=== PATIENT | female | born 1975 | race Caucasian/White ===

== ENCOUNTER 2020-05-06 14:05 | Outpatient (REF) | payer MEDICAID, SELFPAY ==
[2020-05-06 16:29] LABS: TSH reflex Free T4 24.41 mIU/mL (0.32-4.0)
[2020-05-06 17:10] LABS: Free T4 (Free Thyroxine) 0.58 ng/dL (0.71-1.85)
== END 2020-05-06 14:06 | disposition home or self-care (01) ==
LOC: HO.LAB 14:05
PROVIDERS: PCP Nurse Practitioner Family; Visit Provider Obstetrics & Gynecology
DX: N93.9 Abnormal uterine and vaginal bleeding, unspecified (principal)
CPT/HCPCS: 84439; 84443; 99202

== ENCOUNTER → 2020-05-31 10:01 | Outpatient (BNVA) | payer MEDICAID, SELFPAY | PROVIDERS: Visit Provider Obstetrics & Gynecology | DX: Z76.89 Persons encountering health services in other specified circumstances (principal) ==

== ENCOUNTER → 2020-06-02 11:42 | Outpatient (BNVA) | payer MEDICAID, SELFPAY | PROVIDERS: Visit Provider Obstetrics & Gynecology | DX: N93.9 Abnormal uterine and vaginal bleeding, unspecified (principal) | CPT/HCPCS: 99212 ==

== ENCOUNTER 2020-06-11 07:41 | Day surgery (SDC) | payer MEDICAID, SELFPAY ==
[2020-06-03 20:32] VITALS: BMI 32.1
--- NOTE | 2020-06-09 11:37 | P.CONAN_ITS ---
Documented by User: Tabatha Hernández 06/09/20 11:39 HPI - Anesthesia Eval Consult details Narrative: 44yo F for Hysteroscopy Diagnostic w/Novasure, possible novasure ablation PMFSH Past Medical History Medical History (Updated 06/11/20 @ 09:58 by Anabel King) Autoimmune disorder B12 deficiency Chronic hepatitis C HIV (human immunodeficiency virus infection) Hypothyroidism Iron deficiency anemia Surgical History Surgical History H/O tubal ligation H/O: Social History Social History (Updated 06/11/20 @ 09:59 by Anabel King) Alcohol intake: current Smoking Status: Former smoker Second Hand Smoke Exposure: No Use of substances other than those prescribed or required for medical reasons: No Advance Directives: No Advance Directives Information Provided: No Advance Directives on File: No Recently lost weight without trying: No Sexual orientation: Straight/Heterosexual Gender identity: female Meds Allergies Allergy/AdvReac Type Severity Reaction Status Date / Time No Known Allergies Allergy Verified 06/03/20 20:31 [No Known Allergies*] Home Medications Medication Instructions Recorded Confirmed Type Tivicay 50 mg PO DAILY 05/06/20 06/03/20 History docusate sodium 100 mg PO BID 05/06/20 06/03/20 History levothyroxine 200 mcg PO DAILY 05/06/20 06/03/20 History ferrous sulfate [iron] 325 mg PO DAILY 06/03/20 06/03/20 History Exam Exam Date and Time: June 09, 2020 1137 Height,Weight and Vital Signs: Height 5 ft 1 in Weight 77.111 kg Pertinent Lab Results Pertinent Lab Results: Laboratory Tests 02/22/20 02/22/20 06:01 06:01 WBC 5.4 Hgb 8.2 L Hct 27.2 L Plt Count 363 Sodium 139 Potassium 4.0 Chloride 108 BUN 10 Creatinine 1.00 Assessment and Plan Assessment Anesthesia Assessment: Chart Reviewed Documented by User: Anabel King 06/11/20 10:48 [facility] Past Medical History Medical History (Updated 06/11/20 @ 09:58 by Anabel King) Autoimmune disorder B12 deficiency Chronic hepatitis C HIV (human immunodeficiency virus infection) Hypothyroidism Iron deficiency anemia Family History Family history of problems with anesthesia: No Surgical History Surgical History H/O tubal ligation H/O: History of Problems with Anesthesia: No Social History Social History (Updated 06/11/20 @ 09:59 by Anabel King) Alcohol intake: current Smoking Status: Former smoker Second Hand Smoke Exposure: No Use of substances other than those prescribed or required for medical reasons: No Advance Directives: No Advance Directives Information Provided: No Advance Directives on File: No Recently lost weight without trying: No Sexual orientation: Straight/Heterosexual Gender identity: female Meds Allergies Allergy/AdvReac Type Severity Reaction Status Date / Time No Known Allergies Allergy Verified 06/03/20 20:31 [No Known Allergies*] Home Medications Medication Instructions Recorded Confirmed Type Tivicay 50 mg PO DAILY 05/06/20 06/03/20 History docusate sodium 100 mg PO BID 05/06/20 06/03/20 History levothyroxine 200 mcg PO DAILY 05/06/20 06/03/20 History ferrous sulfate [iron] 325 mg PO DAILY 06/03/20 06/03/20 History Exam Height,Weight and Vital Signs: Vital Signs Temp Pulse Resp BP Pulse Ox 06/11/20 08:58 97.6 F 57 16 102/63 100 Pertinent Lab Results Pertinent Lab Results: Lab Results 06/11/20 06/11/20 06/11/20 Range/Units 08:22 10:04 10:04 Hgb 10.0 L (12.0-16.0) g/dl Hct Cancelled 31.1 L Beta HCG, Quant < 2 mIU/mL Airway Mallampati Class: II TM Dist: >3cm Neck ROM: Full (Some pain with full extension) Loose/Missing/Broken Teeth: Yes (Some missing) Heart: RRR Lungs: CTAB Assessment and Plan Assessment Anesthesia Assessment: Anesthesia Plan Discussed and Chart Reviewed Final Anesthetic Review NPO: Yes ASA Class: III Final Preanesthetic Review: No Changes in Pt Med Stat, Meds/Allgs Chart Reviewed, Consent Obtained/Reviewed and Anes Risks/Benef Reviewed Patient Risk: Intermediate Procedure Risk: Low Assessment/Block/Sedation in SS: Assess/Block/Sedation-SS Anesthetic Plan Anesthetic Plan: GA Disposition: Standard PACU
[2020-06-11] VITALS (7 sets, daily range): BP systolic 101–108; BP diastolic 63–72; PULSE 53–75; RESP 16; TEMP 36.3–36.4; O2SAT 98–100
[2020-06-11] MEDS: Lactated Ringers 1,000 ML 100 ML IVCONT (08:57)
--- NOTE | 2020-06-11 08:58 | MHC.SHP ---
Pre-Procedural Eval Section A The patient is an INPATIENT: No Changes since office visit: No Cold of Flu in the past 2 weeks, No New Medical Problems, No Changes in Medication and No Patient answered all questions The History & Physical has been completed within 30 days and I have reviewed it.: Yes Section B Chief Complaint: abnormal bleeding Allergies: Allergies Allergy/AdvReac Type Severity Reaction Status Date / Time No Known Allergies Allergy Verified 06/03/20 20:31 [No Known Allergies*] Plan I have reviewed the history and physical and performed a pertinent physical examination on my patient. No changes have occurred unless specified.
[2020-06-11 09:06] LABS: HCG Quantitative < 2 mIU/mL
[2020-06-11 10:21] LABS: Hematocrit 31.1 % (37-47)
--- NOTE | 2020-06-11 10:56 | W.PM.OPN ---
Operative Note Operative Note Date of Service: 06/11/20 Narrative: Ms. Jim is a 44 year old with abnormal uterine bleeding. She presents today for hysteroscopy d&c for AUB after EMB was unsuccessful in the office . Surgical Risks: The patient was informed of the risks and benefits of a hysteroscopy with dilation and curettage. Risks included but were not limited to bleeding, infection, injury to the vulva, vagina, or cervix, and uterine perforation with possible need for further surgery. The patient expressed understanding of the risks involved, all questions were answered, and the patient consented to the procedure. The patient was taken to the operating room where a time out was confirmed to confirm correct patient and correct procedure. Adequate general anesthesia was established. The patient was then positioned on the operating table in the dorsal lithotomy position with her legs supported using stirrups. All pressure points were padded and a warm blanket was placed to maintain control of core body temperature. The patient was then prepped and draped in the usual sterile fashion. A bimanual exam was performed and the uterus was found to be approximately 12 cm size, anteverted. No adnexal masses were palpated. A straight catheter was inserted into the bladder and 100mL of urine was obtained. A bivalve speculum was then inserted into the vagina. The anterior lip of the cervix was visualized and grasped using a single tooth tenaculum. The cervix was adequately dilated using Green dilators for the introduction of the hysteroscope. The hysteroscope was introduced under direct visualization using normal saline solution as the distending media. The hysteroscope was advanced to the fundus and the entire uterine cavity was inspected. Polypoid tissue was noted bilaterally distal to the fundus. The myosure was advanced through the hysteroscope and sharp curettage under direct visualization was performed of polypoid appearing tissue at 8 o'clock and 3 o'clock. The myosure within the hysteroscope was then removed and a sharp curetting was performed starting at the 12 o?clock position and rotating a total of 360 degrees in order to cover all surfaces. Endometrial tissue was obtained and was sent to pathology. Following the curetting, good hemostasis was noted. The single-tooth tenaculum was removed from the anterior lip of the cervix. Bleeding was noted at the left tenaculum puncture site which did not resolve with pressure alone and Monsel's solution was paplied. Good hemostasis was then noted. The speculum was then removed from the vagina. At the end of the procedure, all needle, sponge, and instrument counts were noted to be correct x2. The patient was transferred to the recovery room in stable condition. Fluid deficit: 270mL EBL: 10cc
--- NOTE | 2020-06-11 12:21 | HO.POSTANES ---
Post Anesthesia Evaluation Post Anesthesia Evaluation Vital Signs: Vital Signs Temp Pulse Resp BP Pulse Ox 06/11/20 11:43 97.4 F 60 16 103/69 99 06/11/20 11:28 75 16 106/72 98 06/11/20 11:13 54 16 103/69 98 06/11/20 11:08 69 16 108/63 98 06/11/20 11:03 53 16 106/67 100 06/11/20 10:58 97.4 F 56 16 101/67 100 06/11/20 08:58 97.6 F 57 16 102/63 100 Anesthesia: General LMA Mental Status: Awake Pain Control: Satisfactory Nausea/Vomiting: None Hydration: Adequate Anesthesia-Related Issues: No Anes. Related Issues
== END 2020-06-11 12:17 | disposition home or self-care (01) ==
PROVIDERS: Anesthesiology; PCP Nurse Practitioner Family; Visit Provider Obstetrics & Gynecology
PROC: (CPT 58558; principal; 2020-06-11 10:00)
DX: N93.9 Abnormal uterine and vaginal bleeding, unspecified (principal); N85.4 Malposition of uterus; D89.89 Other specified disorders involving the immune mechanism, not elsewhere classified; D50.9 Iron deficiency anemia, unspecified; E03.9 Hypothyroidism, unspecified; Z98.51 Tubal ligation status; Z21 Asymptomatic human immunodeficiency virus [HIV] infection status; Z79.899 Other long term (current) drug therapy; Z86.19 Personal history of other infectious and parasitic diseases
CPT/HCPCS: 58558; 36415; 84702; 85014; 85018; 88305; J1100; J2250; J2405; J3010

== ENCOUNTER 2020-06-13 14:09 | Emergency (ER) | payer MEDICAID, SELFPAY ==
--- NOTE | 2020-06-13 | US_ITS ---
EXAMINATION: ULTRASOUND PELVIS, COMPLETE CLINICAL INFORMATION: COMPARISON: 02/21/2020 TECHNIQUE: Transabdominal and transvaginal imaging of the pelvic viscera was performed utilizing grayscale and color Doppler technique with spectral analysis FINDINGS: Uterus is normal in size and configuration measuring 10.9 x 5.5 x 6.2 cm. The endometrial signature is homogeneous and measures 0.5 cm. Cervix is normal. Left ovary normal in size and appearance measuring 2.8 x 2.2 x 1.7 cm. Right ovary is normal in size and appearance measuring 2.9 x 2.7 x 2.1 cm. There is a heterogeneous vascularized mass within the right adnexa adjacent to the right ovary measuring 5.6 x 4.5 x 4.8 cm. The mass contains a 2.9 cm hyperechoic area within. In this region on the prior examination, there was a 3.3 x 2.4 x 3.0 cm lesion which appeared more homogeneously hypoechoic. No free fluid. US/US transvaginal IMPRESSION: * No evidence of retained products of conception. * Uterus and endometrium are unremarkable. * There is a heterogeneous 5.6 cm mass within the right adnexa which appears separate from the ovary. On the prior examination, there was a 3.3 cm mass within the right adnexa, which at that time appeared more homogeneously hypoechoic in appearance. The mass now contains a hyperechoic region and appears hypervascular. Neoplasm is considered, as well as possible ectopic . Correlate with hCG levels. Recommend MRI pelvis without and with contrast for further evaluation.
[2020-06-13 14:21] VITALS: BP 108/63; PULSE 73; RESP 16; TEMP 36.9; O2SAT 100; BMI 33.2
--- NOTE | 2020-06-13 14:30 | ED.FEMALEGU ---
HPI - Female Genitourinary General Chief complaint: Vaginal Bleeding Stated complaint: heavy vag bleed Time Seen by Provider: 06/13/20 14:29 Source: patient Mode of arrival: ambulatory Limitations: no limitations History of Present Illness HPI Narrative: 44-year-old female with past medical history that is significant for vitamin B12 deficiency, chronic otitis C, HIV on Tivicay, hypothyroidism, IgA, surgical history of tubal ligation and who is day 3 status post hysteroscopy d&c for abnormal uterine bleeding she presents today with complaint of states she has been experiencing heavy bleeding for the past 1 day she is having to go through at least 4 pads of fully saturated vaginal bleeding. Denies any pain or discomfort. No nausea vomiting. No fever. No dysuria. States she was advised if she experiences bleeding to come to the emergency room. Severity: moderate Quality of pain: other (No pain) Vaginal discharge: none Vaginal bleeding: heavy Exacerbating factors: none Sexual activity: No Patient : No Related Data Home Medications Medication Instructions Recorded Confirmed Tivicay 50 mg PO DAILY 05/06/20 06/03/20 docusate sodium 100 mg PO BID 05/06/20 06/03/20 levothyroxine 200 mcg PO DAILY 05/06/20 06/03/20 ferrous sulfate [iron] 325 mg PO DAILY 06/03/20 06/03/20 Previous Rx's Medication Instructions Recorded acetaminophen [Tylenol 8 Hour] 650 mg PO Q8H PRN #60 tab 06/11/20 ibuprofen 800 mg PO Q8H PRN #60 tab 06/11/20 oxycodone [Roxicodone] 5 mg PO Q6H PRN #5 tab 06/11/20 Allergies Allergy/AdvReac Type Severity Reaction Status Date / Time No Known Allergies Allergy Verified 06/03/20 20:31 [No Known Allergies*] Review of Systems Review of Systems: Constitutional: No Weight loss, No Fever, No Chills, No Night Sweats, No Fatigue, No Malaise ENT/Mouth: No Hearing loss, No Ear Pain, No Nasal Congestion, No Sinus Pain, No Hoarseness, No sore throat, No Rhinorrhea, No Swallowing Difficulty Eyes: No Eye Pain, No Swelling, No Redness, No Foreign Body, No Discharge, No Vision Changes Cardiovascular: No Chest Pain, No SOB, No Dyspnea on Exertion, No Orthopnea, No Edema, No Palpitations Respiratory: No Cough, No Sputum, No Wheezing, No Smoke Exposure, No Dyspnea Gastrointestinal: No Nausea, No Vomiting, No Diarrhea, No Constipation, No abdominal Pain, No Hematochezia, No Melena Genitourinary: No Dysuria, No Urinary Frequency, No Hematuria, No Urinary Incontinence, No Urgency, No Flank Pain, No Urinary Flow Changes, No Hesitancy Musculoskeletal: No joint pain, No Myalgias, No Joint Swelling Skin: No Skin Lesions, No rash Neuro: No Weakness, No Numbness, No Paresthesias, No Loss of Consciousness, No Dizziness, No Headache Psych: No Social Issues Heme/Lymph: No Bruising, No Bleeding,No Lymphadenopathy Endocrine: No Polyuria, No Polydipsia, No Temperature Intolerance [facility] Past Medical History Medical History (Updated 06/13/20 @ 20:35 by Levar Jean NP) Autoimmune disorder B12 deficiency Chronic hepatitis C HIV (human immunodeficiency virus infection) Hypothyroidism Iron deficiency anemia Surgical History H/O tubal ligation H/O: Social History Social History (Updated 06/11/20 @ 09:59 by Anabel King) Alcohol intake: current Alcohol intake frequency: does not drink Smoking Status: Never smoker Second Hand Smoke Exposure: No Use of substances other than those prescribed or required for medical reasons: No Advance Directives: No Advance Directives Information Provided: Yes Sexual orientation: Straight/Heterosexual Gender identity: female Physical Exam Vital Signs: Vital Signs: Last Vital Signs Temp 98.5 F 06/13/20 14:21 Pulse 57 06/13/20 19:15 Resp 16 06/13/20 19:15 BP 100/62 06/13/20 19:15 Pulse Ox 99 06/13/20 19:15 Body Mass Index 33.2 Reviewed Const: General: cooperative and healthy appearing; No acute distress or intoxicated appearing Nutritional Appearance: average body habitus Orientation/consciousness: patient oriented x3 HENMT: Head: Yes normal to inspection Ears: hearing grossly normal bilaterally Eyes: General: appearance normal, both eyes and all related structures Visual Chang: normal visual chang by confrontation Neck: Neck: Yes normal visual inspection and No tender Thyroid: Thyroid normal Chest: Chest palpation & inspection: normal inspection of the chest Resp: Effort & Inspection: normal respiratory effort Cardio: Jugular venous distension: no JVD Rhythm: regular rhythm Heart sounds: S1 normal heart sound present and S2 normal heart sound present GI: Inspection: Yes normal to inspection Palpation (GI): Soft to palpation Percussion: Yes normal to percussion Auscultation: normal bowel sounds : Other: Slight gentle suction after exam vaginal vault cleared Q-tip used to gently palpate against the posterior cervix. Three large Q-tips very minimally/serrated in blood afterwards no further bleeding. General: Yes no CVA tenderness External Female Exam: normal external appearance Speculum Exam - Vagina: normal palpation, vaginal bleeding (Slight bleeding in the vaginal vault) and nontender Speculum Exam - Cervix: normal appearance of the cervix, normal palpation and normal vervical discharge Bimanual exam- vagina & uterus: normal palpation and normal palpation OB/external & speculum: vaginal bleeding (Slight bleeding in the vaginal vault) Back/Spine/Pelvis: Back: no CVA tenderness Skin: General skin exam: no rashes or lesions noted Neuro: General: patient oriented x3 Extrem: General: Yes normal to inspection Course Course Course Narrative: No further bleeding after pelvic exam. In review 44-year-old female with above history who is day 3 status post hysteroscopy d&c for AUB after EMB presenting with vaginal bleeding without pain or discomfort. No evidence of PID, infectious process. Hemodynamically stable. Vitals are stable. Ultrasound findings with some abnormalities as noted case discussed with Dr. Long recommendation for follow-up in office with Dr. De Souza they call tomorrow to the office. Consultations Consultation #1: Case discussed with Dr. Long [facility] - Female Genitourinary Medical Records Attestation: I reviewed the patient's medical records. Lab Data Attestation: I reviewed the patient's lab results. Result diagrams: 06/13/20 15:19 06/13/20 15:19 Labs: Lab Results 06/13/20 06/13/20 06/13/20 Range/Units 15:19 15:19 15:19 WBC 4.8 (4.8-10.8) X10*3/uL RBC 3.74 L (4.20-5.50) X10*6/uL Hgb 9.7 L (12.0-16.0) g/dl Hct 31.1 L (37-47) % MCV 83.2 (80-98) fL MCH 25.9 L (27.0-33.0) pg MCHC 31.2 (31.0-35.0) g/dl RDW 14.6 (11.0-16.0) % Plt Count 304 (160-400) X10*3/uL MPV 10.0 (9.4-12.3) fL Immature Gran % (Auto) 0.2 (0.0-0.4) % Neut % (Auto) 57.5 (45-73) % Lymph % (Auto) 32.4 (20-40) % Casey % (Auto) 8.1 (2-11) % Eos % (Auto) 1.4 (0-4) % Baso % (Auto) 0.4 (0-2) % Lymph # (Auto) 1.6 (1.2-4.9) X10*3/uL Casey # (Auto) 0.4 (0.1-1.2) X10*3/uL Eos # (Auto) 0.1 (0.0-0.4) X10*3/uL Baso # (Auto) 0.0 (0.0-0.2) X10*3/uL Abs Immat Gran (auto) 0.01 (0.00-0.03) X10*3/uL Absolute Neuts (auto) 2.8 (2.0-8.3) X10*3/uL Absolute Nucleated RBC 0.000 (0.0-0.012) X10*3/uL Nucleated RBC % (auto) 0.0 (0.0-0.2) /100WBC PT 14.1 H (10.8-13.0) SEC INR 1.2 H (0.9-1.1) APTT 33.5 (24.1-38.0) SEC Sodium 138 (135-145) mmol/L Potassium 3.9 (3.3-5.1) mmol/l Chloride 108 (96-108) mmol/L Carbon Dioxide 25 (22-29) mmol/L Anion Gap 10 L (12-20) BUN 10 (9-16) mg/dL Creatinine 0.78 (0.5-1.4) mg/dL Estim Creat Clear Calc 86.2 Estimated GFR > 60 Random Glucose 84 (60-115) mg/dL Calcium 8.4 (8.4-10.2) mg/dL Total Bilirubin 0.6 (0.0-1.0) mg/dL AST 15 (5-31) U/L ALT 9 (0-31) U/L Alkaline Phosphatase 45 (39-117) U/L Total Protein 7.0 (6.5-8.0) g/dL Albumin 4.0 (3.5-5.0) g/dL Beta HCG, Quant < 2 mIU/mL Urine Color Urine Appearance Urine pH (5.0-8.0) Ur Specific [place] (1.005-1.025) Urine Protein (NEG-TRACE) MG/DL Urine Glucose (UA) (NEG) MG/DL Urine Ketones (NEG) MG/DL Urine Blood (NEG) Urine Nitrite (NEG) Ur Leukocyte Esterase (NEG) Urine RBC (0) /HPF Urine WBC (0-4) /HPF Ur Squamous Epith Cells /LPF Urine Bacteria /LPF Urine Test (NEGATIVE) Blood Type Antibody Screen 06/13/20 06/13/20 Range/Units 15:19 18:31 WBC (4.8-10.8) X10*3/uL RBC (4.20-5.50) X10*6/uL Hgb (12.0-16.0) g/dl Hct (37-47) % MCV (80-98) fL MCH (27.0-33.0) pg MCHC (31.0-35.0) g/dl RDW (11.0-16.0) % Plt Count (160-400) X10*3/uL MPV (9.4-12.3) fL Immature Gran % (Auto) (0.0-0.4) % Neut % (Auto) (45-73) % Lymph % (Auto) (20-40) % Casey % (Auto) (2-11) % Eos % (Auto) (0-4) % Baso % (Auto) (0-2) % Lymph # (Auto) (1.2-4.9) X10*3/uL Casey # (Auto) (0.1-1.2) X10*3/uL Eos # (Auto) (0.0-0.4) X10*3/uL Baso # (Auto) (0.0-0.2) X10*3/uL Abs Immat Gran (auto) (0.00-0.03) X10*3/uL Absolute Neuts (auto) (2.0-8.3) X10*3/uL Absolute Nucleated RBC (0.0-0.012) X10*3/uL Nucleated RBC % (auto) (0.0-0.2) /100WBC PT (10.8-13.0) SEC INR (0.9-1.1) APTT (24.1-38.0) SEC Sodium (135-145) mmol/L Potassium (3.3-5.1) mmol/l Chloride (96-108) mmol/L Carbon Dioxide (22-29) mmol/L Anion Gap (12-20) BUN (9-16) mg/dL Creatinine (0.5-1.4) mg/dL Estim Creat Clear Calc Estimated GFR Random Glucose (60-115) mg/dL Calcium (8.4-10.2) mg/dL Total Bilirubin (0.0-1.0) mg/dL AST (5-31) U/L ALT (0-31) U/L Alkaline Phosphatase (39-117) U/L Total Protein (6.5-8.0) g/dL Albumin (3.5-5.0) g/dL Beta HCG, Quant mIU/mL Urine Color RED Urine Appearance TURBID Urine pH 7.0 (5.0-8.0) Ur Specific [place] 1.025 (1.005-1.025) Urine Protein 2+ H (NEG-TRACE) MG/DL Urine Glucose (UA) NEG (NEG) MG/DL Urine Ketones NEG (NEG) MG/DL Urine Blood 3+ H (NEG) Urine Nitrite NEG (NEG) Ur Leukocyte Esterase 1+ H (NEG) Urine RBC TNTC H (0) /HPF Urine WBC 0 (0-4) /HPF Ur Squamous Epith Cells NONE /LPF Urine Bacteria 1+ /LPF Urine Test NEGATIVE (NEGATIVE) Blood Type O Positive Antibody Screen NEGATIVE Imaging Data Pelvic/transvaginal ultrasound: Radiologist's impression: [address] [address] Ultrasound Report Signed Patient: HilHeidy colonR#: [id number] : 1975Acct:[id number] Age/Sex: 44 / FADM Date: 06/13/20 Loc: HO.ED Attending Dr: Ordering Physician: Levar Jean NP Date of Service: 06/13/20 Procedure(s): US pelvic complete Accession Number(s): [id number] cc: Levar Jean [employer]~ EXAMINATION: ULTRASOUND PELVIS, COMPLETE CLINICAL INFORMATION: COMPARISON: 02/21/2020 TECHNIQUE: Transabdominal and transvaginal imaging of the pelvic viscera was performed utilizing grayscale and color Doppler technique with spectral analysis FINDINGS: Uterus is normal in size and configuration measuring 10.9 x 5.5 x 6.2 cm. The endometrial signature is homogeneous and measures 0.5 cm. Cervix is normal. Left ovary normal in size and appearance measuring 2.8 x 2.2 x 1.7 cm. Right ovary is normal in size and appearance measuring 2.9 x 2.7 x 2.1 cm. There is a heterogeneous vascularized mass within the right adnexa adjacent to the right ovary measuring 5.6 x 4.5 x 4.8 cm. The mass contains a 2.9 cm hyperechoic area within. In this region on the prior examination, there was a 3.3 x 2.4 x 3.0 cm lesion which appeared more homogeneously hypoechoic. No free fluid. US/US pelvic complete IMPRESSION: * No evidence of retained products of conception. * Uterus and endometrium are unremarkable. * There is a heterogeneous 5.6 cm mass within the right adnexa which appears separate from the ovary. On the prior examination, there was a 3.3 cm mass within the right adnexa, which at that time appeared more homogeneously hypoechoic in appearance. The mass now contains a hyperechoic region and appears hypervascular. Neoplasm is considered, as well as possible ectopic . Correlate with hCG levels. Recommend MRI pelvis without and with contrast for further evaluation. Dictated By:MARTIN MENDOZA MD Signed By:<Electronically signed by MARTIN MENDOZA MD in OV>06/13/20 0036 DD/ 1430 TD/TT: Supreme Court Judge: BAKARI Discharge Plan Discharge Clinical Impression: Abnormal uterine bleeding, Abnormal pelvic ultrasound Patient Disposition: Home, Self-Care Instructions: Dysfunctional Uterine Bleeding (ED) Additional Instructions: Take iron supplement as prescribed Well-balanced diet Push fluids Take her iron supplement as prescribed Follow-up with Dr. De Souza as discussed Return if any concerns or worsening symptoms Thank you Prescriptions: No Action ferrous sulfate [iron] 325 mg (65 mg iron) Tablet 325 mg PO DAILY RF: 0 ibuprofen 800 mg tablet 800 mg PO Q8H PRN (Reason: pain) Qty: 60 RF: 0 acetaminophen [Tylenol 8 Hour] 650 mg tablet extended release 650 mg PO Q8H PRN (Reason: pain) Qty: 60 RF: 0 oxycodone [Roxicodone] 5 mg tablet 5 mg PO Q6H PRN (Reason: pain) Qty: 5 RF: 0 docusate sodium 100 mg Capsule 100 mg PO BID RF: 0 levothyroxine 200 mcg Tablet 200 mcg PO DAILY RF: 0 Tivicay 50 mg Tablet 50 mg PO DAILY RF: 0 Referrals: Linda De Souza MD [Physician] - 2 days
[2020-06-13 15:05] VITALS: BP 100/64; PULSE 50; RESP 14; O2SAT 98
[2020-06-13 15:26] LABS: Basophils Percent Auto 0.4 % (0-2); Eosinophils Absolute Auto 0.1 X10*3/uL (0.0-0.4); Eosinophils Percent Auto 1.4 % (0-4); Hematocrit 31.1 % (37-47); Hemoglobin 9.7 g/dl (12.0-16.0); Imm Gran Abs Auto 0.01 X10*3/uL (0.00-0.03); Imm Gran Pct Auto 0.2 % (0.0-0.4); Lymphocytes Absolute Auto 1.6 X10*3/uL (1.2-4.9); Lymphocytes Percent Auto 32.4 % (20-40); MANUAL DIFF FLAG NO; Mean Corpuscular HGB Conc 31.2 g/dl (31.0-35.0); Mean Corpuscular Hemoglobin 25.9 pg (27.0-33.0); Mean Corpuscular Volume 83.2 fL (80-98); Monocytes Absolute Auto 0.4 X10*3/uL (0.1-1.2); Monocytes Percent Auto 8.1 % (2-11); Neutrophils Absolute Auto 2.8 X10*3/uL (2.0-8.3); Neutrophils Percent Auto 57.5 % (45-73); Platelet Count 304 X10*3/uL (160-400); Red Blood Count 3.74 X10*6/uL (4.20-5.50); Red Cell Distribution Width 14.6 % (11.0-16.0); White Blood Count 4.8 X10*3/uL (4.8-10.8)
[2020-06-13 15:33] LABS: INTERNATIONAL NORM RATIO 1.2 (0.9-1.1); Prothrombin Time 14.1 SEC (10.8-13.0)
[2020-06-13 15:35] LABS: Partial Thromboplastin Time 33.5 SEC (24.1-38.0)
[2020-06-13 16:05] LABS: Alanine Aminotransferase 9 U/L (0-31); Alkaline Phosphatase 45 U/L (39-117); Bilirubin Total 0.6 mg/dL (0.0-1.0); Blood Urea Nitrogen 10 mg/dL (9-16); Calcium 8.4 mg/dL (8.4-10.2); Carbon Dioxide 25 mmol/L (22-29); Creatinine Clr Calc Pharmacy 86.2; Estimated Glomerular Filt Rate > 60; Glucose Random 84 mg/dL (60-115)
[2020-06-13 16:20] LABS: Anion Gap 10 (12-20); Aspartate Amino Transferase 15 U/L (5-31); Chloride 108 mmol/L (96-108); Potassium 3.9 mmol/l (3.3-5.1); Sodium 138 mmol/L (135-145)
[2020-06-13 17:26] VITALS: BP 109/66; PULSE 57; RESP 16; O2SAT 99
[2020-06-13 18:46] LABS: UPreg QC Valid YES; Urine Pregnancy NEGATIVE (NEGATIVE)
--- NOTE | 2020-06-13 18:47 | PC.NURSE ---
Report taken from Lissette, this RN resuming care.
[2020-06-13 18:49] LABS: Glucose Urine UA NEG (NEG); Leukocyte Esterase Urine 1+ (NEG); Nitrite Urine NEG (NEG); Specific Gravity - Urine 1.025 (1.005-1.025); Urine Blood 3+ (NEG); Urine Ketones NEG (NEG); Urine Protein 2+ MG/DL (NEG-TRACE)
[2020-06-13 18:54] LABS: HCG Quantitative < 2 mIU/mL
[2020-06-13 18:54] LABS: Appearance Urine TURBID; Color Urine RED
[2020-06-13 18:55] LABS: Bacteria Urine 1+ /LPF; RBC Urine TNTC /HPF (0); WBC Urine 0 /HPF (0-4)
[2020-06-13 19:15] VITALS: BP 100/62; PULSE 57; RESP 16; O2SAT 99
--- NOTE | 2020-06-13 19:18 | PC.NURSE ---
Pt resting in bed, primarily Iraqi speaking only, denies pain at this time. VSS, pt awaiting lab results and plan of care. Continue to monitor.
--- NOTE | 2020-06-13 20:08 | PC.NURSE ---
[employer]AC[employer] MEMBER at bedside explaining plan to DC home.
--- NOTE | 2020-06-13 20:37 | PC.NURSE ---
Spray Dry Operator called for DC instructions.
== END 2020-06-13 20:55 | disposition home or self-care (01) ==
PROVIDERS: Nurse Practitioner Primary Care; Emergency Provider Emergency Medicine; PCP Nurse Practitioner Family
DX: N93.9 Abnormal uterine and vaginal bleeding, unspecified (principal); R93.41 Abnormal radiologic findings on diagnostic imaging of renal pelvis, ureter, or bladder; Z21 Asymptomatic human immunodeficiency virus [HIV] infection status
CPT/HCPCS: 36415; 76830; 76856; 80053; 81001; 81025; 84702; 85025; 85610; 85730; 86850; 86900; 86901; 87086; 99284

== ENCOUNTER → 2020-06-17 08:58 | Outpatient (BNVA) | payer MEDICAID, SELFPAY | PROVIDERS: Visit Provider Obstetrics & Gynecology | DX: N83.201 Unspecified ovarian cyst, right side (principal); R30.0 Dysuria | CPT/HCPCS: 99212 ==

== ENCOUNTER 2020-06-17 09:42 | Inpatient (IN) | payer MEDICAID, SELFPAY ==
--- NOTE | 2020-06-17 | IR_ITS ---
EXAMINATION: ULTRASOUND PRIOR TO NEPHROSTOMY CLINICAL INFORMATION: Right pyelonephritis unlikely hydronephrosis on CT abdomen and pelvis. COMPARISON: CT abdomen and pelvis 06/17/2020. TECHNIQUE: Relatively ultrasound imaging was obtained through the kidneys in the angiography prior to nephrostomy. FINDINGS: On limited ultrasound imaging to the posterior abdomen there is an enlarged right kidney with mild fullness of right kidney pelvis but no dilated calyces seen there is perinephric haziness similar to CT findings more suggestive of inflammatory or infectious etiology. The nephrostomy was canceled find out. On subsequent ultrasound images of there is a dilated calyceal system a nephrostomy will be performed. Results were discussed with Dr. Wiley. IR/IR us guide needle place IMPRESSION: Enlarged right kidney with no significant calyceal dilation. There is mild fullness of the right kidney pelvis and the right ureter as seen on the preceding CT abdomen and pelvis exam. Right nephrostomy was canceled for now. We will revisit patient and nephrostomy after a repeat ultrasound in next 24 to 48 hours or
[2020-06-17 09:51] VITALS: BP 98/55; PULSE 104; RESP 18; TEMP 37.7; O2SAT 99; BMI 33.2
[2020-06-17] MEDS: 0.9 % Sodium Chloride 1,000 ML 999 ML IV ×2 (10:16→11:55)
[2020-06-17 10:23] LABS: Basophils Percent Auto 0.1 % (0-2); Hematocrit 30.2 % (37-47); Hemoglobin 9.9 g/dl (12.0-16.0); Imm Gran Abs Auto 0.05 X10*3/uL (0.00-0.03); Imm Gran Pct Auto 0.4 % (0.0-0.4); Lymphocytes Absolute Auto 0.4 X10*3/uL (1.2-4.9); Lymphocytes Percent Auto 3.9 % (20-40); MANUAL DIFF FLAG SCAN; Mean Corpuscular HGB Conc 32.8 g/dl (31.0-35.0); Mean Corpuscular Hemoglobin 26.4 pg (27.0-33.0); Mean Corpuscular Volume 80.5 fL (80-98); Mean Platelet Volume 9.8 fL (9.4-12.3); Monocytes Absolute Auto 0.9 X10*3/uL (0.1-1.2); Monocytes Percent Auto 7.6 % (2-11); Neutrophils Absolute Auto 9.9 X10*3/uL (2.0-8.3); Platelet Count 247 X10*3/uL (160-400); Red Blood Count 3.75 X10*6/uL (4.20-5.50); Red Cell Distribution Width 15.2 % (11.0-16.0); SCAN SMEAR FLAG 1; White Blood Count 11.2 X10*3/uL (4.8-10.8)
--- NOTE | 2020-06-17 10:24 | PC.NURSE ---
Patient arrives reporting severe flank pain, primarily on right side. Reports hematuria, frequency, and urgency since recent surgery five days ago. Patient appears uncomfortable, blood pressure soft, slightly tachycardic. Tyler PA to bedside to evaluate. IV established and labs drawn. Hung NS 1L at this time. Patient aware of need for urine sample. Will continue to monitor.
--- NOTE | 2020-06-17 10:27 | ED_ITS ---
HPI - General Adult General Chief complaint: Vaginal Bleeding Stated complaint: blood in urine Time Seen by Provider: 06/17/20 10:45 Source: patient Mode of arrival: wheelchair Limitations: no limitations History of Present Illness HPI narrative: Patient presents to ED for right flank pain, dysuria, hematuria, and feeling fevers for the past 3 days. Patient status post surgery for hysterectomy/vaginal bleeding for heavy menstruation. Patient states she only sees blood when she urinates. Patient denies any vaginal bleeding Related Data Home Medications Medication Instructions Recorded Confirmed Tivicay 50 mg PO DAILY 05/06/20 06/17/20 docusate sodium 100 mg PO BID 05/06/20 06/17/20 levothyroxine 200 mcg PO DAILY 05/06/20 06/17/20 ferrous sulfate [iron] 325 mg PO DAILY 06/03/20 06/17/20 Previous Rx's Medication Instructions Recorded acetaminophen [Tylenol 8 Hour] 650 mg PO Q8H PRN #60 tab 06/11/20 ibuprofen 800 mg PO Q8H PRN #60 tab 06/11/20 oxycodone [Roxicodone] 5 mg PO Q6H PRN #5 tab 06/11/20 Allergies Allergy/AdvReac Type Severity Reaction Status Date / Time No Known Allergies Allergy Verified 06/17/20 09:05 [No Known Allergies*] Review of Systems Review of Systems: Yes all other systems are reviewed and are negative Constitutional: Constitutional: Reports as per HPI and Reports no additional constitutional complaints Eyes: Eyes: Reports as per HPI and Reports no additional eye complaints ENT: Reports system reviewed and no additional complaints, except as documented and Reports as per HPI Cardiovascular: Cardiovascular: Reports as per HPI and Reports no additional cardiovascular complaints Respiratory: Respiratory: Reports as per HPI and Reports no additional respiratory complaints Gastrointestinal: Gastrointestinal: Reports as per HPI, Reports no additional gastrointestinal complaints and Reports abdominal pain Genitourinary: Genitourinary: Reports no additional female genitourinary complaints, Reports as per HPI, Reports hematuria and Reports flank pain Comments: Positive for dysuria Musculoskeletal: Musculoskeletal: Reports no additional musculoskeletal complaints and Reports as per HPI Neurologic: Reports system reviewed and no additional complaints, except as documented and Reports as per HPI Psychiatric: Psychiatric: Reports no additional psychiatric complaints and Reports as per HPI PMFSH Past Medical History Medical History Autoimmune disorder B12 deficiency Chronic hepatitis C HIV (human immunodeficiency virus infection) Hypothyroidism Iron deficiency anemia Surgical History H/O tubal ligation H/O: Social History Social History Alcohol intake: never Smoking Status: Never smoker Second Hand Smoke Exposure: No Use of substances other than those prescribed or required for medical reasons: No Advance Directives: No Advance Directives Information Provided: Yes Sexual orientation: Straight/Heterosexual Gender identity: female Physical Exam Vital Signs: Vital Signs: Last Vital Signs Temp 100 F 06/17/20 15:14 Pulse 104 H 06/17/20 15:14 Resp 18 06/17/20 15:14 BP 105/63 06/17/20 15:14 Pulse Ox 99 06/17/20 15:14 Body Mass Index 33.2 Const: General: cooperative, healthy appearing, comfortable, no acute distress, well developed, alert and awake Orientation/consciousness: patient oriented x3 HENMT: Head: Yes normal to inspection and Yes No palpable skull fracture present Eyes: General: appearance normal, both eyes and all related structures Neck: Neck: Yes normal visual inspection, Yes full ROM, Yes no lymphadenopathy, Yes no meningeal signs, Yes trachea midline, Yes supple and No tender Chest: Chest palpation & inspection: normal inspection of the chest and normal palpation of entire chest wall Resp: Effort & Inspection: normal respiratory effort and able to speak in complete sentences Auscultation: clear to auscultation bilaterally Cardio: Jugular venous distension: no JVD Heart sounds: S1 normal heart sound present and S2 normal heart sound present GI: Inspection: Yes normal to inspection and No abdominal wall ecchymosis Palpation (GI): Soft to palpation, not firm, Tenderness to palpation present (GI) in the RLQ, no guarding and not rigid : General: Yes CVA tenderness (Right flank) Back/Spine/Pelvis: Back: CVA tenderness (Right flank) Skin: General skin exam: no rashes or lesions noted Neuro: General: patient oriented x3, gait normal, no meningeal signs and CN's II-XI intact bilaterally Cranial nerves: Yes CN's II-XII intact bilaterally Extrem: General: Yes normal to inspection and Yes full ROM Psych: Appearance: grossly normal, well kempt and not disheveled Course Course Course Narrative: Patient will have basic labs including lactate, blood culture, and septic fluids. Most likely patient will need imaging. This patient kidney stone. Reevaluation(s) Reevaluation #1: Urine shows UTI. Clinical exam indicate possible pyelonephritis. Ceftriaxone ordered. Lactic negative. Will send patient for CT scan to see for possible kidney stones. Time: 11:37 Reevaluation #2: Spoke with hospitalist Dr. Raymond who recommend calling analytics intern on-call to make them aware of case and the possibility that the pelvic mass is causing the hydronephrosis and hydro ureter. Time: 12:52 Reevaluation #3: Spoke with Dr. Mercedes CLARKE who recommend to discuss case with Urology on-call to see if ureter stent will be placed. Spoke with Dr. Davis of urology who states patient should have IR nephrectomy tube yadira cement, which is not a Urology procedure. SPoke with Dr. Miller of who state he will do the procedure today. Time: 18:00 Additional Reevaluation(s): Patient admitted to the hospital for pyelonephritis. Medical Decision Making MDM Narrative Medical decision making narrative: Pyelonephritis Lab Data Result diagrams: 06/17/20 10:13 06/17/20 10:14 Labs: Lab Results 06/17/20 06/17/20 06/17/20 Range/Units 10:13 10:13 10:14 WBC 11.2 H (4.8-10.8) X10*3/uL RBC 3.75 L (4.20-5.50) X10*6/uL Hgb 9.9 L (12.0-16.0) g/dl Hct 30.2 L (37-47) % MCV 80.5 (80-98) fL MCH 26.4 L (27.0-33.0) pg MCHC 32.8 (31.0-35.0) g/dl RDW 15.2 (11.0-16.0) % Plt Count 247 (160-400) X10*3/uL MPV 9.8 (9.4-12.3) fL Immature Gran % (Auto) 0.4 (0.0-0.4) % Neut % (Auto) 88.0 H (45-73) % Lymph % (Auto) 3.9 L (20-40) % [place] % (Auto) 7.6 (2-11) % Eos % (Auto) 0.0 (0-4) % Baso % (Auto) 0.1 (0-2) % Lymph # (Auto) 0.4 L (1.2-4.9) X10*3/uL [place] # (Auto) 0.9 (0.1-1.2) X10*3/uL Eos # (Auto) 0.0 (0.0-0.4) X10*3/uL Baso # (Auto) 0.0 (0.0-0.2) X10*3/uL Abs Immat Gran (auto) 0.05 H (0.00-0.03) X10*3/uL Absolute Neuts (auto) 9.9 H (2.0-8.3) X10*3/uL Absolute Nucleated RBC 0.000 (0.0-0.012) X10*3/uL Nucleated RBC % (auto) 0.0 (0.0-0.2) /100WBC Smear Tech's Comments VERIFIED PT 14.7 H (10.8-13.0) SEC INR 1.2 H (0.9-1.1) APTT 28.5 (24.1-38.0) SEC Sodium (135-145) mmol/L Potassium (3.3-5.1) mmol/l Chloride (96-108) mmol/L Carbon Dioxide (22-29) mmol/L Anion Gap (12-20) BUN (9-16) mg/dL Creatinine (0.5-1.4) mg/dL Estim Creat Clear Calc Estimated GFR Random Glucose (60-115) mg/dL Lactic Acid 1.1 (0.5-2.0) mmol/L Calcium (8.4-10.2) mg/dL Total Bilirubin (0.0-1.0) mg/dL AST (5-31) U/L ALT (0-31) U/L Alkaline Phosphatase (39-117) U/L Total Protein (6.5-8.0) g/dL Albumin (3.5-5.0) g/dL Beta HCG, Quant mIU/mL Urine Color Urine Appearance Urine pH (5.0-8.0) Ur Specific [place] (1.005-1.025) Urine Protein (NEG-TRACE) MG/DL Urine Glucose (UA) (NEG) MG/DL Urine Ketones (NEG) MG/DL Urine Blood (NEG) Urine Nitrite (NEG) Ur Leukocyte Esterase (NEG) Urine RBC (0) /HPF Urine WBC (0-4) /HPF Ur Squamous Epith Cells /LPF Urine Bacteria /LPF Urine Test (NEGATIVE) Coronavirus (PCR) (Negative) Influenza Type A (PCR) (Negative) Influenza Type B (PCR) (Negative) RSV RNA Qual (PCR) (Negative) 06/17/20 06/17/20 06/17/20 Range/Units 10:14 10:14 10:51 WBC (4.8-10.8) X10*3/uL RBC (4.20-5.50) X10*6/uL Hgb (12.0-16.0) g/dl Hct (37-47) % MCV (80-98) fL MCH (27.0-33.0) pg MCHC (31.0-35.0) g/dl RDW (11.0-16.0) % Plt Count (160-400) X10*3/uL MPV (9.4-12.3) fL Immature Gran % (Auto) (0.0-0.4) % Neut % (Auto) (45-73) % Lymph % (Auto) (20-40) % [place] % (Auto) (2-11) % Eos % (Auto) (0-4) % Baso % (Auto) (0-2) % Lymph # (Auto) (1.2-4.9) X10*3/uL [place] # (Auto) (0.1-1.2) X10*3/uL Eos # (Auto) (0.0-0.4) X10*3/uL Baso # (Auto) (0.0-0.2) X10*3/uL Abs Immat Gran (auto) (0.00-0.03) X10*3/uL Absolute Neuts (auto) (2.0-8.3) X10*3/uL Absolute Nucleated RBC (0.0-0.012) X10*3/uL Nucleated RBC % (auto) (0.0-0.2) /100WBC Smear Tech's Comments PT (10.8-13.0) SEC INR (0.9-1.1) APTT (24.1-38.0) SEC Sodium 135 (135-145) mmol/L Potassium 3.5 (3.3-5.1) mmol/l Chloride 105 (96-108) mmol/L Carbon Dioxide 21 L (22-29) mmol/L Anion Gap 13 (12-20) BUN 14 (9-16) mg/dL Creatinine 1.01 (0.5-1.4) mg/dL Estim Creat Clear Calc 66.6 Estimated GFR > 60 Random Glucose 123 H D (60-115) mg/dL Lactic Acid (0.5-2.0) mmol/L Calcium 8.4 (8.4-10.2) mg/dL Total Bilirubin 1.1 H (0.0-1.0) mg/dL AST 18 (5-31) U/L ALT 18 (0-31) U/L Alkaline Phosphatase 61 D (39-117) U/L Total Protein 7.0 (6.5-8.0) g/dL Albumin 3.8 (3.5-5.0) g/dL Beta HCG, Quant < 2 mIU/mL Urine Color BROWN Urine Appearance CLOUDY Urine pH 5.5 (5.0-8.0) Ur Specific [place] >= 1.030 H (1.005-1.025) Urine Protein 2+ H (NEG-TRACE) MG/DL Urine Glucose (UA) NEG (NEG) MG/DL Urine Ketones 5 (NEG) MG/DL Urine Blood 3+ H (NEG) Urine Nitrite POS H (NEG) Ur Leukocyte Esterase 1+ H (NEG) Urine RBC TNTC H (0) /HPF Urine WBC TNTC H (0-4) /HPF Ur Squamous Epith Cells 2+ /LPF Urine Bacteria 4+ /LPF Urine Test NEGATIVE (NEGATIVE) Coronavirus (PCR) (Negative) Influenza Type A (PCR) (Negative) Influenza Type B (PCR) (Negative) RSV RNA Qual (PCR) (Negative) 06/17/20 Range/Units 12:53 WBC (4.8-10.8) X10*3/uL RBC (4.20-5.50) X10*6/uL Hgb (12.0-16.0) g/dl Hct (37-47) % MCV (80-98) fL MCH (27.0-33.0) pg MCHC (31.0-35.0) g/dl RDW (11.0-16.0) % Plt Count (160-400) X10*3/uL MPV (9.4-12.3) fL Immature Gran % (Auto) (0.0-0.4) % Neut % (Auto) (45-73) % Lymph % (Auto) (20-40) % [place] % (Auto) (2-11) % Eos % (Auto) (0-4) % Baso % (Auto) (0-2) % Lymph # (Auto) (1.2-4.9) X10*3/uL [place] # (Auto) (0.1-1.2) X10*3/uL Eos # (Auto) (0.0-0.4) X10*3/uL Baso # (Auto) (0.0-0.2) X10*3/uL Abs Immat Gran (auto) (0.00-0.03) X10*3/uL Absolute Neuts (auto) (2.0-8.3) X10*3/uL Absolute Nucleated RBC (0.0-0.012) X10*3/uL Nucleated RBC % (auto) (0.0-0.2) /100WBC Smear Tech's Comments PT (10.8-13.0) SEC INR (0.9-1.1) APTT (24.1-38.0) SEC Sodium (135-145) mmol/L Potassium (3.3-5.1) mmol/l Chloride (96-108) mmol/L Carbon Dioxide (22-29) mmol/L Anion Gap (12-20) BUN (9-16) mg/dL Creatinine (0.5-1.4) mg/dL Estim Creat Clear Calc Estimated GFR Random Glucose (60-115) mg/dL Lactic Acid (0.5-2.0) mmol/L Calcium (8.4-10.2) mg/dL Total Bilirubin (0.0-1.0) mg/dL AST (5-31) U/L ALT (0-31) U/L Alkaline Phosphatase (39-117) U/L Total Protein (6.5-8.0) g/dL Albumin (3.5-5.0) g/dL Beta HCG, Quant mIU/mL Urine Color Urine Appearance Urine pH (5.0-8.0) Ur Specific [place] (1.005-1.025) Urine Protein (NEG-TRACE) MG/DL Urine Glucose (UA) (NEG) MG/DL Urine Ketones (NEG) MG/DL Urine Blood (NEG) Urine Nitrite (NEG) Ur Leukocyte Esterase (NEG) Urine RBC (0) /HPF Urine WBC (0-4) /HPF Ur Squamous Epith Cells /LPF Urine Bacteria /LPF Urine Test (NEGATIVE) Coronavirus (PCR) NEGATIVE (Negative) Influenza Type A (PCR) NEGATIVE (Negative) Influenza Type B (PCR) NEGATIVE (Negative) RSV RNA Qual (PCR) NEGATIVE (Negative) Discharge Plan Discharge Clinical Impression: Pyelonephritis Patient Disposition: Admitted As Inpatient
[2020-06-17 10:35] LABS: INTERNATIONAL NORM RATIO 1.2 (0.9-1.1); Prothrombin Time 14.7 SEC (10.8-13.0)
[2020-06-17 10:38] LABS: Partial Thromboplastin Time 28.5 SEC (24.1-38.0)
[2020-06-17 10:40] LABS: SLIDE REVIEW VERIFIED
[2020-06-17 10:46] LABS: Lactic Acid 1.1 mmol/L (0.5-2.0)
[2020-06-17 10:54] LABS: Alanine Aminotransferase 18 U/L (0-31); Albumin Level 3.8 g/dL (3.5-5.0); Alkaline Phosphatase 61 U/L (39-117); Anion Gap 13 (12-20); Aspartate Amino Transferase 18 U/L (5-31); Bilirubin Total 1.1 mg/dL (0.0-1.0); Blood Urea Nitrogen 14 mg/dL (9-16); Calcium 8.4 mg/dL (8.4-10.2); Carbon Dioxide 21 mmol/L (22-29); Chloride 105 mmol/L (96-108); Creatinine Clr Calc Pharmacy 66.6; Estimated Glomerular Filt Rate > 60; Glucose Random 123 mg/dL (60-115); Potassium 3.5 mmol/l (3.3-5.1); Sodium 135 mmol/L (135-145)
[2020-06-17 10:58] LABS: HCG Quantitative < 2 mIU/mL
--- NOTE | 2020-06-17 11:01 | PC.NURSE ---
Report given to SHWETA Neumann.
[2020-06-17 11:09] LABS: Glucose Urine UA NEG (NEG); Leukocyte Esterase Urine 1+ (NEG); Nitrite Urine POS (NEG); PH 5.5 (5.0-8.0); Urine Blood 3+ (NEG); Urine Ketones 5 MG/DL (NEG); Urine Protein 2+ MG/DL (NEG-TRACE)
--- NOTE | 2020-06-17 11:09 | CT_ITS ---
EXAMINATION: CT ABDOMEN AND PELVIS WITHOUT CONTRAST CLINICAL INFORMATION: adnexal mass. History HIV. COMPARISON: Ultrasound pelvis 06/13/2020 and 02/21/2020, renal ultrasound 02/27/2020. TECHNIQUE: Multidetector volumetric imaging was performed from the superior aspect of the liver through the pubic symphysis. Sagittal and coronal reformatted images were obtained on the technologist's workstation. No oral or intravenous contrast. This CT examination was performed using dose optimization techniques as appropriate, variously including the following: *Automated exposure control *Adjustment of mA and/or kV according to patient size (this includes techniques or standardized protocols for targeted exams where dose is matched to indication/reason for exam; i.e. extremities or head) *Use of iterative reconstruction technique DLP: 711 mGy-cm FINDINGS: LUNG BASES: Bilateral dependent atelectasis. LIVER, GALLBLADDER, AND BILIARY TREE: The liver is normal in size, shape, and attenuation. No focal hepatic lesion or biliary ductal dilatation is present. The gallbladder shows no stone or wall thickening. There is a fold at the gallbladder fundus. PANCREAS: Unremarkable. SPLEEN: Unremarkable. ADRENAL GLANDS: Unremarkable. KIDNEYS AND URETERS: There is right hydronephrosis and perinephric stranding with right hydroureter down to the known right pelvic mass. There is no visible obstructing calculus. The left kidney is unremarkable. No left hydronephrosis, hydroureter, or calculi. BLADDER: Circumferential wall thickening versus pseudothickening from underdistention. No bladder calculus. GASTROINTESTINAL TRACT: No bowel obstruction or inflammatory changes in the bowel or adjacent mesentery. Normal appendix. No ascites or fluid collection. ABDOMINAL WALL: Small fat-containing umbilical hernia just under 3 cm. LYMPH NODES: Heavily calcified left inguinal node 1.4 x 2.1 cm. There are multiple small retroperitoneal nodes. No bulky adenopathy. VASCULAR: Unremarkable. PELVIC VISCERA: There is a right adnexal mass 19 HU attenuation measuring approximately 5.8 x 5.0 x 4.4 cm. This appears separate from the uterus rather than exophytic uterine lesion. Uterus attenuation 40 HU. No pelvic ascites. OSSEOUS STRUCTURES: Unremarkable. CT/CT abdomen pelvis wo con IMPRESSION: Right hydronephrosis, right perinephric stranding, and right hydroureter down to the level of the known right adnexal mass (5.8 x 5.0 x 4.4 cm). No visible urinary tract calculi. 2. Circumferential bladder wall thickening versus pseudothickening from underdistention. 3. No bowel obstruction or inflammatory changes. Normal appendix. 4. Multiple small retroperitoneal nodes. Heavily calcified left inguinal node. No bulky adenopathy.
[2020-06-17 11:12] LABS: Appearance Urine CLOUDY; Color Urine BROWN; Specific Gravity - Urine >= 1.030 (1.005-1.025)
[2020-06-17 11:16] LABS: Bacteria Urine 4+ /LPF; RBC Urine TNTC /HPF (0); Squamous Epithelial Cell Urine 2+ /LPF; WBC Urine TNTC /HPF (0-4)
[2020-06-17 11:51] LABS: UPreg QC Valid YES; Urine Pregnancy NEGATIVE (NEGATIVE)
[2020-06-17] MEDS: cefTRIAXone sodium 1 GM in 0.9 % Sodium Chloride 50 ML IV (11:55)
[2020-06-17] MEDS: 0.9 % Sodium Chloride 500 ML IV (11:56)
[2020-06-17 12:00] VITALS: BP 101/57; PULSE 82; RESP 18; TEMP 37.2; O2SAT 99
[2020-06-17 13:47] LABS: Influenza A PCR NEGATIVE (Negative); Influenza B PCR NEGATIVE (Negative); Resp Syncy Virus RNA Qual PCR NEGATIVE (Negative); SARS COV2 PCR INHOUSE NEGATIVE (Negative)
[2020-06-17] MEDS: Ketorolac Tromethamine 30 MG/ML VIAL IVPUSH (14:52)
[2020-06-17 15:14] VITALS: BP 105/63; PULSE 104; RESP 18; TEMP 37.7; O2SAT 99
--- NOTE | 2020-06-17 16:10 | PC.NURSE ---
pt to IR
--- NOTE | 2020-06-17 17:17 | PM.IMHP ---
History of Present Illness Date of Service: 06/17/20 Chief Complaint: flank pain , 44-year-old female recently underwent hysteroscopic dilatation and curettage for abnormal uterine bleeding on 06/11/2020, patient was discharged home presented to ER on 06/13 with flank pain and bleeding and was discharged home, during this admission patient presented with worsening left flank pain associated with nausea and vomiting, patient also reporting chills and fever, in the ER UA was positive, CT abdomen shows right -sided hydronephrosis and right adnexal mass, case was discussed with shop tailor by ED physician and recommended treating for pyelonephritis and nephrostomy tube , case was discussed with FABIANA lazo , initial plan was to put nephrostomy tube, ultrasound was repeated by Interventional Radiology, per FABIANA lazo , ultrasound does not show significant hydronephrosis and mild pelvic fullness recommended holding nephrostomy tube for now, patient was admitted for sepsis and pyelonephritis, Review of Systems Constitutional: Constitutional: Reports fatigue, Reports fever(s) and Reports weakness Cardiovascular: Cardiovascular: Denies chest pain and Denies dyspnea Respiratory: Respiratory: Denies dyspnea Gastrointestinal: Gastrointestinal: Reports vomiting Genitourinary: Genitourinary: Reports dysuria and Reports pelvic pain Neurologic: Reports system reviewed and no additional complaints, except as documented, Reports as per HPI and Reports weakness Endocrine: Endocrine: Reports fatigue PMFSH Medical History Autoimmune disorder B12 deficiency Chronic hepatitis C HIV (human immunodeficiency virus infection) Hypothyroidism Iron deficiency anemia Family History (Updated 06/17/20 @ 17:23 by Jagdish Wiley MD) Other Hypertension Surgical History H/O tubal ligation H/O: Social History Household Members: Children Housing: Apartment Alcohol intake: never Smoking Status: Never smoker Second Hand Smoke Exposure: No Use of substances other than those prescribed or required for medical reasons: No Currently Displaying Signs/Symptoms of Drug Intoxication Withdrawal: No Do you feel safe in your current relationship?: Yes Is there a partner from a previous relationship who is making you feel unsafe now?: No Are you made to feel afraid or neglected: No Advance Directives: No Advance Directives Information Provided: Yes Do you have thoughts of harming others: None Do you have a plan to hurt others: No Plan Recently lost weight without trying: No Sexual orientation: Straight/Heterosexual Gender identity: female Meds Allergies Allergy/AdvReac Type Severity Reaction Status Date / Time No Known Allergies Allergy Verified 06/17/20 09:05 [No Known Allergies*] Home Medications Medication Instructions Recorded Confirmed Type docusate sodium 100 mg PO BID 05/06/20 06/17/20 History levothyroxine 200 mcg PO DAILY 05/06/20 06/17/20 History ferrous sulfate [iron] 325 mg PO DAILY 06/03/20 06/17/20 History Physical Exam Vital Signs and Narrative: Vital Signs: Last Vital Signs Temp 100 F 06/17/20 15:14 Pulse 104 H 06/17/20 15:14 Resp 18 06/17/20 15:14 BP 105/63 06/17/20 15:14 Pulse Ox 99 06/17/20 15:14 Body Mass Index 33.2 Results Labs CBC and Chem 7: 06/18/20 05:37 06/18/20 05:37 Labs: Laboratory Results - last 24 hr 06/17/20 06/17/20 06/17/20 10:13 10:13 10:14 MCV 80.5 MCH 26.4 L MCHC 32.8 RDW 15.2 Plt Count 247 MPV 9.8 Immature Gran % (Auto) 0.4 Neut % (Auto) 88.0 H Lymph % (Auto) 3.9 L [place] % (Auto) 7.6 Eos % (Auto) 0.0 Baso % (Auto) 0.1 Lymph # (Auto) 0.4 L [place] # (Auto) 0.9 Eos # (Auto) 0.0 Baso # (Auto) 0.0 Abs Immat Gran (auto) 0.05 H Absolute Neuts (auto) 9.9 H Absolute Nucleated RBC 0.000 Nucleated RBC % (auto) 0.0 Smear Tech's Comments VERIFIED PT 14.7 H INR 1.2 H APTT 28.5 Anion Gap Estim Creat Clear Calc Estimated GFR Random Glucose Lactic Acid 1.1 Calcium Total Bilirubin AST ALT Alkaline Phosphatase Total Protein Albumin Beta HCG, Quant Urine Color Urine Appearance Urine pH Ur Specific [place] Urine Protein Urine Glucose (UA) Urine Ketones Urine Blood Urine Nitrite Ur Leukocyte Esterase Urine RBC Urine WBC Ur Squamous Epith Cells Urine Bacteria Urine Test Coronavirus (PCR) Influenza Type A (PCR) Influenza Type B (PCR) RSV RNA Qual (PCR) 06/17/20 06/17/20 06/17/20 10:14 10:14 10:51 MCV MCH MCHC RDW Plt Count MPV Immature Gran % (Auto) Neut % (Auto) Lymph % (Auto) [place] % (Auto) Eos % (Auto) Baso % (Auto) Lymph # (Auto) [place] # (Auto) Eos # (Auto) Baso # (Auto) Abs Immat Gran (auto) Absolute Neuts (auto) Absolute Nucleated RBC Nucleated RBC % (auto) Smear Tech's Comments PT INR APTT Anion Gap 13 Estim Creat Clear Calc 66.6 Estimated GFR > 60 Random Glucose 123 H D Lactic Acid Calcium 8.4 Total Bilirubin 1.1 H AST 18 ALT 18 Alkaline Phosphatase 61 D Total Protein 7.0 Albumin 3.8 Beta HCG, Quant < 2 Urine Color BROWN Urine Appearance CLOUDY Urine pH 5.5 Ur Specific [place] >= 1.030 H Urine Protein 2+ H Urine Glucose (UA) NEG Urine Ketones 5 Urine Blood 3+ H Urine Nitrite POS H Ur Leukocyte Esterase 1+ H Urine RBC TNTC H Urine WBC TNTC H Ur Squamous Epith Cells 2+ Urine Bacteria 4+ Urine Test NEGATIVE Coronavirus (PCR) Influenza Type A (PCR) Influenza Type B (PCR) RSV RNA Qual (PCR) 06/17/20 12:53 MCV MCH MCHC RDW Plt Count MPV Immature Gran % (Auto) Neut % (Auto) Lymph % (Auto) [place] % (Auto) Eos % (Auto) Baso % (Auto) Lymph # (Auto) [place] # (Auto) Eos # (Auto) Baso # (Auto) Abs Immat Gran (auto) Absolute Neuts (auto) Absolute Nucleated RBC Nucleated RBC % (auto) Smear Tech's Comments PT INR APTT Anion Gap Estim Creat Clear Calc Estimated GFR Random Glucose Lactic Acid Calcium Total Bilirubin AST ALT Alkaline Phosphatase Total Protein Albumin Beta HCG, Quant Urine Color Urine Appearance Urine pH Ur Specific [place] Urine Protein Urine Glucose (UA) Urine Ketones Urine Blood Urine Nitrite Ur Leukocyte Esterase Urine RBC Urine WBC Ur Squamous Epith Cells Urine Bacteria Urine Test Coronavirus (PCR) NEGATIVE Influenza Type A (PCR) NEGATIVE Influenza Type B (PCR) NEGATIVE RSV RNA Qual (PCR) NEGATIVE Imaging Radiologist's Impressions: Impressions Abdomen/Pelvis CT 06/17/20 11:09 IMPRESSION: Right hydronephrosis, right perinephric stranding, and right hydroureter down to the level of the known right adnexal mass (5.8 x 5.0 x 4.4 cm). No visible urinary tract calculi. 2. Circumferential bladder wall thickening versus pseudothickening from underdistention. 3. No bowel obstruction or inflammatory changes. Normal appendix. 4. Multiple small retroperitoneal nodes. Heavily calcified left inguinal node. No bulky adenopathy. Assessment and Plan (1) Pyelonephritis: Status: Acute (2) Hypothyroidism: Problem details: Severe hypothyroidism January 2020 secondary to not taking meds for 3 years Status: Acute (3) Abnormal uterine bleeding: Status: Acute 44-year-old female presented with flank pain urinary frequency nausea vomiting and low-grade fever, patient recently has hysteroscopic dilatation and curettage for abnormal uterine bleed, CT abdomen on admission shows left-sided hydronephrosis and left adnexal mass with pyelonephritis Sepsis secondary to pyelonephritis continue IV Rocephin follow-up cultures continue IV fluid CT abdomen shows IR -sided hydronephrosis and left adnexal mass discussed with shop tailor recommended treating pyelonephritis and nephrostomy versus ureteral stent IR was consulted repeat ultra sound shows mild pelvic fullness but no hydronephrosis , IR wants to hold off on nephrostomy tube for now monitor kidney function will get shop tailor consult chronic iron deficiency anemia likely secondary to uterine bleeding monitor H&H hypothyroidism continue levothyroxine HIV continue HIV medication DVT prophylaxis Lovenox
[2020-06-17 17:30] VITALS: BP 107/69; PULSE 101; RESP 16; TEMP 38.1; O2SAT 98
--- NOTE | 2020-06-17 18:07 | PC.NURSE ---
2nd call to [facility] [place] for report.
[2020-06-17 20:47] VITALS: BP 116/65; PULSE 107; RESP 20; TEMP 36.6; O2SAT 98
[2020-06-17] MEDS: 0.9 % Sodium Chloride 1,000 ML 100 ML IVCONT (21:05)
[2020-06-17] MEDS: Morphine Sulfate 4 MG/ML CARTRIDGE 3 MG IVPUSH (22:01)
[2020-06-17] MEDS: Docusate Sodium 100 MG CAPSULE PO (22:01)
[2020-06-17] MEDS: 0.9 % Sodium Chloride Flush 3 ML SYRINGE IVFLUSH (22:02)
[2020-06-17] MEDS: Acetaminophen 325 MG TABLET 650 MG PO (22:38)
[2020-06-17 23:38] VITALS: BP 108/61; PULSE 105; RESP 20; TEMP 39.4; O2SAT 95
[2020-06-18] VITALS (8 sets, daily range): BP systolic 93–105; BP diastolic 54–67; PULSE 70–104; RESP 17–20; TEMP 36.4–38.1; O2SAT 96–98
--- NOTE | 2020-06-18 01:46 | PC.NURSE ---
2340 P-TEMP 103 I- NOTIFIED.PT MEDICATED WITH 2 TYLENOL AT 2240.ICE PACKS APPLIED TO NECK AND ARM PITS.RECEIVED IV ROCEPHIN IN ER . E-WILL CONTINUE TO MONITOR.
[2020-06-18] MEDS: Levothyroxine Sodium 200 MCG TABLET PO (05:14)
[2020-06-18] MEDS: 0.9 % Sodium Chloride 1,000 ML 100 ML IVCONT (05:14)
[2020-06-18] MEDS: Acetaminophen 325 MG TABLET 650 MG PO ×3 (05:16→21:05)
--- NOTE | 2020-06-18 05:58 | PC.NURSE ---
0330 E-TEMP 98.9
[2020-06-18 06:31] LABS: MANUAL DIFF FLAG NO
[2020-06-18 06:53] LABS: Basophils Percent Auto 0.1 % (0-2); Hematocrit 28.7 % (37-47); Imm Gran Abs Auto 0.05 X10*3/uL (0.00-0.03); Imm Gran Pct Auto 0.6 % (0.0-0.4); Lymphocytes Absolute Auto 0.7 X10*3/uL (1.2-4.9); Lymphocytes Percent Auto 8.2 % (20-40); Mean Corpuscular HGB Conc 31.4 g/dl (31.0-35.0); Mean Corpuscular Hemoglobin 25.9 pg (27.0-33.0); Mean Corpuscular Volume 82.5 fL (80-98); Mean Platelet Volume 11.1 fL (9.4-12.3); Monocytes Absolute Auto 0.9 X10*3/uL (0.1-1.2); Neutrophils Absolute Auto 7.1 X10*3/uL (2.0-8.3); Neutrophils Percent Auto 81.1 % (45-73); Platelet Count 255 X10*3/uL (160-400); Red Blood Count 3.48 X10*6/uL (4.20-5.50); Red Cell Distribution Width 15.7 % (11.0-16.0); White Blood Count 8.8 X10*3/uL (4.8-10.8)
[2020-06-18 07:25] LABS: Anion Gap 12 (12-20); Blood Urea Nitrogen 12 mg/dL (9-16); Carbon Dioxide 20 mmol/L (22-29); Chloride 107 mmol/L (96-108); Estimated Glomerular Filt Rate > 60; Glucose Random 89 mg/dL (60-115); Potassium 3.5 mmol/l (3.3-5.1); Sodium 135 mmol/L (135-145)
[2020-06-18 07:42] LABS: Calcium 7.4 mg/dL (8.4-10.2)
[2020-06-18] MEDS: Docusate Sodium 100 MG CAPSULE PO ×2 (08:51→21:03)
[2020-06-18] MEDS: Ferrous Sulfate 324 MG TABLET.DR PO (08:51)
[2020-06-18] MEDS: cefTRIAXone sodium 1 GM in 0.9 % Sodium Chloride 50 ML IV (11:44)
--- NOTE | 2020-06-18 11:52 | US_ITS ---
EXAMINATION: US RETROPERITONEAL LIMITED (RENAL ONLY) CLINICAL INFORMATION: Follow-up right hydronephrosis. COMPARISON: None TECHNIQUE: Routine retroverted ultrasound imaging was performed. FINDINGS: RIGHT KIDNEY: 12.7 x 6.3 x 5.7 cm (SAG x AP x TRV). The kidney is normal in size, contour, and increased echogenicity. Renal cortical thickness is normal. No calculi or focal parenchymal lesions. There is mild hydronephrosis mildly dilated kidney pelvis and ureter but no dilated calyces. There is mild perinephric trace fluid collection. LEFT KIDNEY: 12.3 x 5.5 x 4.9 cm (SAG x AP x TRV). The kidney is normal in size, contour, and increased echogenicity. Renal cortical thickness is normal. No calculi or focal parenchymal lesions. No hydronephrosis. Incidental finding of free fluid adjacent to the spleen. US/US renal BI IMPRESSION: Bilateral renal cortical increased echogenicity. There is trace right perinephric fluid collection and mild hydronephrosis.
[2020-06-18] MEDS: Piperacillin Sodium/Tazobactam 3.375 GM in 0.9 % Sodium Chloride 50 ML IV ×2 (12:19→17:49)
--- NOTE | 2020-06-18 12:54 | P.PNIM_ITS ---
Subjective Subjective Date of Service: 06/18/20 Interval History: Patient was seen and examined at bedside patient was reporting headache and flank pain patient spiked fever last night 103 patient has low-grade fever today Constitutional Constitutional: Reports fatigue, Reports fever(s) and Reports weakness Cardiovascular Cardiovascular: Denies chest pain and Denies dyspnea Respiratory Respiratory: Denies dyspnea Gastrointestinal Gastrointestinal: Reports vomiting Neurologic Neurologic: Reports system reviewed and no additional complaints, except as documented, Reports as per HPI and Reports weakness Endocrine Endocrine: Reports fatigue Physical Exam Vital Signs: Vital Signs: Last Vital Signs Temp 100.5 F H 06/18/20 11:39 Pulse 84 06/18/20 12:29 Resp 18 06/18/20 11:39 BP 104/64 06/18/20 12:29 Pulse Ox 96 06/18/20 11:39 Body Mass Index 33.2 Const: General: cooperative, healthy appearing, comfortable, no acute distress, well developed, alert and awake Orientation/consciousness: patient oriented x3 HENMT: Head: Yes normal to inspection and Yes No palpable skull fracture present Eyes: General: appearance normal, both eyes and all related structures Neck: Neck: Yes normal visual inspection, Yes full ROM, Yes no lymphadenopathy, Yes trachea midline, Yes supple and No tender Chest: Chest palpation & inspection: normal inspection of the chest and normal palpation of entire chest wall Resp: Effort & Inspection: normal respiratory effort and able to speak in complete sentences Auscultation: clear to auscultation bilaterally Cardio: Jugular venous distension: no JVD Heart sounds: S1 normal heart so und present and S2 normal heart sound present GI: Inspection: Yes normal to inspection and No abdominal wall ecchymosis Palpation (GI): Soft to palpation, not firm, Tenderness to palpation present (GI) in the RLQ, no guarding and not rigid : General: Yes CVA tenderness (Right flank) Back/Spine/Pelvis: Back: CVA tenderness (Right flank) Skin: General skin exam: no rashes or lesions noted Neuro: General: patient oriented x3 Extrem: General: Yes normal to inspection and Yes full ROM Psych: Appearance: grossly normal, well kempt and not disheveled Objective Data Current Medications Generic Name Dose Route Start Last Admin Trade Name Freq PRN Reason Stop Dose Admin Acetaminophen 650 mg 06/17/20 22:28 06/18/20 12:19 Acetaminophen 325 Mg Tablet PO 650 mg Q6H PRN Administration Pain, Mild (Pain Scale 1-3) Docusate Sodium 100 mg 06/17/20 21:00 06/18/20 08:51 Docusate Sodium 100 Mg Capsule PO 100 mg BID MYRA Administration Ferrous Sulfate 324 mg 06/18/20 09:00 06/18/20 08:51 Ferrous Sulfate 324 Mg Tablet.Dr PO 324 mg DAILY MYRA Administration Sodium Chloride 1,000 mls @ 125 mls/hr 06/17/20 20:43 06/18/20 12:19 Ns IVCONT 125 mls/hr .Q8H MYRA Infusion Piperacillin Sod/Tazobactam 50 mls @ 100 mls/hr 06/18/20 12:00 06/18/20 12:19 Sod 3.375 gm/ Sodium Chloride IV 100 mls/hr Q6H MYRA Administration Levothyroxine Sodium 200 mcg 06/18/20 06:30 06/18/20 05:14 Levothyroxine Sodium 200 Mcg Tablet PO 200 mcg DAILY@0630 [facility] Administration Morphine Sulfate 2 mg 06/18/20 11:34 Morphine Sulfate 2 Mg/Ml Cartridge IVPUSH Q4H PRN Pain, Severe (Pain Scale 7-10) Pharmacy Consult 1 each 06/17/20 15:51 Consult Rx Perform Med Rec MISCELLANE ONCE PRN Consult order Sodium Chloride 3 ml 06/17/20 20:43 06/18/20 08:52 0.9 % Sodium Chloride Flush 3 Ml Syringe IVFLUSH Not Given QSHIFT [facility] Labs CBC & Chem 7: 06/18/20 05:37 06/18/20 05:37 Microbiology Microbiology Results: Microbiology 06/17/20 10:23 Blood - Venous Blood Culture - Preliminary No growth after 24 hours. 06/17/20 10:13 Blood - Venous Blood Culture - Preliminary No growth after 24 hours. 06/17/20 Unknown Urine clean catch - Clean Catch Midstream Urine Culture - Preliminary Culture in progress. Assessment and Plan (1) Pyelonephritis: Status: Acute (2) Hypothyroidism: Problem details: Severe hypothyroidism January 2020 secondary to not taking meds for 3 years Status: Acute (3) Abnormal uterine bleeding: Status: Acute Assessment and Plan: 44-year-old female presented with flank pain urinary frequency nausea vomiting and low-grade fever, patient recently has hysteroscopic dilatation and curettage for abnormal uterine bleed, CT abdomen on admission shows right - sided hydronephrosis and right adnexal mass with pyelonephritis Sepsis secondary to pyelonephritis CT abdomen shows Right sided hydronephrosis and Right adnexal mass still spiking fever will change Rocephin to Zosyn follow-up cultures continue IV fluid given persistent fevers ,, repeat ultrasound was done again today shows pelvic fullness but no hydronephrosis, IR recommending continue IV antibiotic, and will reassess tomorrow CT abdomen shows right -sided hydronephrosis and Right adnexal mass IR was consulted repeat ultrasound shows mild pelvic fullness but no hydronephrosis , IR recomended to hold off on nephrostomy tube monitor kidney function, discussed with urogynecology physician Dr. Long recommended treating pyelonephritis and relieving obstruction if present, and once infection subsides patient will follow-up with urogynecology physician for further workup for the adnexal mass Chronic iron deficiency anemia likely secondary to uterine bleeding monitor H&H Hypothyroidism continue levothyroxine HIV was off HIV medication pharmacist was not able confirm [facility] patient pharmacy t will hold HIV med until verified DVT prophylaxis Lovenox
--- NOTE | 2020-06-18 13:02 | MHC.CM.PN ---
Female 44 DX Blood loss anemia. Pt lives with her son. She is independent all functional mobility. DP home no services family transport. Requested copy of HCP.
[2020-06-18] MEDS: polyethylene glycoL 3350 17 GM POWD.PACK PO (15:08)
[2020-06-18] MEDS: 0.9 % Sodium Chloride 1,000 ML 125 ML IVCONT ×2 (15:08→22:47)
[2020-06-19] VITALS (7 sets, daily range): BP systolic 92–113; BP diastolic 53–69; PULSE 65–75; RESP 15–18; TEMP 36.7–38.2; O2SAT 97–100; BMI 33.2
[2020-06-19] MEDS: Piperacillin Sodium/Tazobactam 3.375 GM in 0.9 % Sodium Chloride 50 ML IV ×5 (00:45→23:29)
[2020-06-19] MEDS: Morphine Sulfate 2 MG/ML CARTRIDGE IVPUSH ×2 (00:49→06:32)
[2020-06-19] MEDS: Levothyroxine Sodium 200 MCG TABLET PO (05:23)
[2020-06-19 06:43] LABS: MANUAL DIFF FLAG NO
[2020-06-19 07:01] LABS: Basophils Percent Auto 0.3 % (0-2); Eosinophils Percent Auto 0.4 % (0-4); Hemoglobin 8.2 g/dl (12.0-16.0); Imm Gran Abs Auto 0.04 X10*3/uL (0.00-0.03); Imm Gran Pct Auto 0.5 % (0.0-0.4); Lymphocytes Absolute Auto 1.4 X10*3/uL (1.2-4.9); Lymphocytes Percent Auto 17.5 % (20-40); Mean Corpuscular HGB Conc 31.5 g/dl (31.0-35.0); Mean Corpuscular Volume 82.5 fL (80-98); Mean Platelet Volume 10.5 fL (9.4-12.3); Monocytes Absolute Auto 0.9 X10*3/uL (0.1-1.2); Monocytes Percent Auto 10.9 % (2-11); Neutrophils Absolute Auto 5.6 X10*3/uL (2.0-8.3); Neutrophils Percent Auto 70.4 % (45-73); Platelet Count 234 X10*3/uL (160-400); Red Blood Count 3.15 X10*6/uL (4.20-5.50); Red Cell Distribution Width 15.6 % (11.0-16.0)
[2020-06-19 07:26] LABS: Anion Gap 10 (12-20); Blood Urea Nitrogen 8 mg/dL (9-16); Calcium 7.1 mg/dL (8.4-10.2); Carbon Dioxide 21 mmol/L (22-29); Chloride 108 mmol/L (96-108); Creatinine Clr Calc Pharmacy 89.7; Estimated Glomerular Filt Rate > 60; Glucose Random 77 mg/dL (60-115); Potassium 3.4 mmol/l (3.3-5.1); Sodium 136 mmol/L (135-145)
[2020-06-19] MEDS: 0.9 % Sodium Chloride 1,000 ML 125 ML IVCONT ×2 (07:32→16:07)
[2020-06-19] MEDS: polyethylene glycoL 3350 17 GM POWD.PACK PO (07:34)
[2020-06-19] MEDS: 0.9 % Sodium Chloride Flush 3 ML SYRINGE IVFLUSH ×2 (07:34→16:07)
[2020-06-19] MEDS: Ferrous Sulfate 324 MG TABLET.DR PO (07:34)
[2020-06-19] MEDS: Docusate Sodium 100 MG CAPSULE PO ×2 (07:34→20:37)
--- NOTE | 2020-06-19 15:20 | HO.PM.IMPN ---
Subjective Subjective Date of Service: 06/19/20 Interval History: Seen in f/u for acute pyelonephritis Review of Systems righ flank pain no fever Physical Exam Vital Signs: Vital Signs: Last Vital Signs Temp 98.6 F 06/19/20 11:21 Pulse 69 06/19/20 11:21 Resp 18 06/19/20 11:21 BP 98/59 L 06/19/20 11:21 Pulse Ox 99 06/19/20 11:21 Body Mass Index 33.2 General: AO X 3, no acute distress Resp: CTA bilateral CVS: S1,S2,RRR GI: +BS, NT, no distention : right flank tenderness Skin: No rash Neuro: motor grossly intact Psych: appropriate affect Objective Data Current Medications Generic Name Dose Route Start Last Admin Trade Name Freq PRN Reason Stop Dose Admin Acetaminophen 650 mg 06/17/20 22:28 06/18/20 21:05 Acetaminophen 325 Mg Tablet PO 650 mg Q6H PRN Administration Pain, Mild (Pain Scale 1-3) Docusate Sodium 100 mg 06/17/20 21:00 06/19/20 07:34 Docusate Sodium 100 Mg Capsule PO 100 mg BID MYRA Administration Ferrous Sulfate 324 mg 06/18/20 09:00 06/19/20 07:34 Ferrous Sulfate 324 Mg Tablet.Dr PO 324 mg DAILY MYRA Administration Sodium Chloride 1,000 mls @ 125 mls/hr 06/17/20 20:43 06/19/20 07:32 Ns IVCONT 125 mls/hr .Q8H MYRA Administration Piperacillin Sod/Tazobactam 50 mls @ 100 mls/hr 06/18/20 12:00 06/19/20 14:04 Sod 3.375 gm/ Sodium Chloride IV Infused Q6H MYRA Infusion Levothyroxine Sodium 200 mcg 06/18/20 06:30 06/19/20 05:23 Levothyroxine Sodium 200 Mcg Tablet PO 200 mcg DAILY@0630 MYRA Administration Morphine Sulfate 2 mg 06/18/20 11:34 06/19/20 06:32 Morphine Sulfate 2 Mg/Ml Cartridge IVPUSH 2 mg Q4H PRN Administration Pain, Severe (Pain Scale 7-10) Pharmacy Consult 1 each 06/17/20 15:51 Consult Rx Perform Med Rec MISCELLANE ONCE PRN Consult order Polyethylene Glycol 17 gm 06/18/20 14:15 06/19/20 07:34 Polyethylene Glycol 3350 17 Gm Powd.Pack PO 17 gm DAILY MYRA Administration Sodium Chloride 3 ml 06/17/20 20:43 06/19/20 07:34 0.9 % Sodium Chloride Flush 3 Ml Syringe IVFLUSH 3 ml QSHIFT MYRA Administration Labs CBC & Chem 7: 06/19/20 05:15 06/19/20 05:15 Microbiology Microbiology Results: Microbiology 06/17/20 10:23 Blood - Venous Blood Culture - Preliminary No growth after 48 hours. 06/17/20 10:13 Blood - Venous Blood Culture - Preliminary No growth after 48 hours. 06/17/20 Unknown Urine clean catch - Clean Catch Midstream Urine Culture - Preliminary Gram negative lucía Gram negative lucía#2 Assessment and Plan (1) Pyelonephritis: Status: Acute (2) Hypothyroidism: Problem details: Severe hypothyroidism January 2020 secondary to not taking meds for 3 years Status: Acute (3) Abnormal uterine bleeding: Status: Acute Assessment and Plan: 44-year-old female with HIV, recnet dilation and currettage for abnormal uterine bleeding and now presented withright flank pain urinary frequency nausea vomiting and low-grade fever. CT showed right sided hydro which was not appreciated on US and renal fuction is normal. Sepsis secondary to pyelonephritis, Urine culture growing 2 gram negative organisms--no sensitivity yet -Continue Zosyn day 2 -follow culture result -CT shows rigt sided hydro but ultrsound showed no hydro and therfore IR recommends again nephrostomy tube. Right Adnexal mass--FUNDRAISING CONSULTANT following this Chronic iron deficiency anemia likely secondary to uterine bleeding monitor H&H Hypothyroidism continue levothyroxine HIV was off HIV medication pharmacist was not able confirm [facility] patient pharmacy t will hold HIV med until verified DVT prophylaxis Lovenox
--- NOTE | 2020-06-19 18:42 | PC.NURSE ---
Patient OOB to bathroom ad jessica. Vitals stable. Continues on Abx. No complaints of pain or discomfort. Will continue to monitor.
[2020-06-20] MEDS: 0.9 % Sodium Chloride 1,000 ML 125 ML IVCONT ×2 (01:30→08:36)
[2020-06-20 04:20] VITALS: BP 100/65; PULSE 55; RESP 14; TEMP 36.7; O2SAT 99
[2020-06-20] MEDS: Levothyroxine Sodium 200 MCG TABLET PO (05:37)
[2020-06-20] MEDS: Piperacillin Sodium/Tazobactam 3.375 GM in 0.9 % Sodium Chloride 50 ML IV (05:37)
[2020-06-20 06:34] LABS: MANUAL DIFF FLAG NO
[2020-06-20 06:59] LABS: Basophils Percent Auto 0.4 % (0-2); Eosinophils Absolute Auto 0.1 X10*3/uL (0.0-0.4); Eosinophils Percent Auto 1.6 % (0-4); Hematocrit 26.6 % (37-47); Hemoglobin 8.4 g/dl (12.0-16.0); Imm Gran Abs Auto 0.04 X10*3/uL (0.00-0.03); Imm Gran Pct Auto 0.8 % (0.0-0.4); Lymphocytes Absolute Auto 1.6 X10*3/uL (1.2-4.9); Lymphocytes Percent Auto 31.3 % (20-40); Mean Corpuscular HGB Conc 31.6 g/dl (31.0-35.0); Mean Corpuscular Hemoglobin 25.6 pg (27.0-33.0); Mean Corpuscular Volume 81.1 fL (80-98); Mean Platelet Volume 10.4 fL (9.4-12.3); Monocytes Absolute Auto 0.4 X10*3/uL (0.1-1.2); Monocytes Percent Auto 8.2 % (2-11); Neutrophils Absolute Auto 2.9 X10*3/uL (2.0-8.3); Neutrophils Percent Auto 57.7 % (45-73); Platelet Count 273 X10*3/uL (160-400); Red Blood Count 3.28 X10*6/uL (4.20-5.50); Red Cell Distribution Width 15.5 % (11.0-16.0)
[2020-06-20 07:20] VITALS: BP 100/70; PULSE 63; RESP 16; TEMP 36.9; O2SAT 98
[2020-06-20 07:37] LABS: Anion Gap 10 (12-20); Blood Urea Nitrogen 7 mg/dL (9-16); Calcium 7.6 mg/dL (8.4-10.2); Carbon Dioxide 24 mmol/L (22-29); Chloride 110 mmol/L (96-108); Creatinine Clr Calc Pharmacy 90.9; Estimated Glomerular Filt Rate > 60; Glucose Random 85 mg/dL (60-115); Potassium 3.5 mmol/l (3.3-5.1); Sodium 140 mmol/L (135-145)
[2020-06-20] MEDS: Ferrous Sulfate 324 MG TABLET.DR PO (08:33)
[2020-06-20] MEDS: Docusate Sodium 100 MG CAPSULE PO (08:33)
[2020-06-20] MEDS: polyethylene glycoL 3350 17 GM POWD.PACK PO (08:37)
[2020-06-20] MEDS: 0.9 % Sodium Chloride Flush 3 ML SYRINGE IVFLUSH (08:37)
[2020-06-20 12:06] VITALS: BP 102/61; PULSE 62; RESP 18; TEMP 36.6; O2SAT 99
--- NOTE | 2020-06-20 15:39 | P.DS_ITS ---
DS: Providers Provider Date of admission: 06/17/20 15:55 Primary care physician: Unknown Physician Consults: 06/18/20 11:50 Consult to Urology Routine Consulting Provider: Saroj Cook Reason for consultation: hydronephrosis pyelonephritis DS: Diagnosis Discharge Diagnosis (1) Pyelonephritis: Status: Acute (2) Hypothyroidism: Status: Acute Problem details: Severe hypothyroidism January 2020 secondary to not taking meds for 3 years (3) Abnormal uterine bleeding: Status: Resolved DS: Medications Discharge Medications Home Medications: Home Medications Medication Instructions Recorded Confirmed docusate sodium 100 mg PO BID 05/06/20 06/17/20 levothyroxine 200 mcg PO DAILY 05/06/20 06/17/20 ferrous sulfate [iron] 325 mg PO DAILY 06/03/20 06/17/20 Previous Rx's Medication Instructions Recorded acetaminophen [Tylenol 8 Hour] 650 mg PO Q8H PRN #60 tab 06/11/20 ibuprofen 800 mg PO Q8H PRN #60 tab 06/11/20 oxycodone [Roxicodone] 5 mg PO Q6H PRN #5 tab 06/11/20 cefuroxime axetil 500 mg PO Q12H #20 tab 06/20/20 DS: Summary Hospital Course Hospital Course: Chief Complaint: flank pain 44-year-old female recently underwent hysteroscopic dilatation and curettage for abnormal uterine bleeding on 06/11/2020, patient was discharged home presented to ER on 06/13 with flank pain and bleeding and was discharged home, during this admission patient presented with worsening left flank pain associated with nausea and vomiting, patient also reporting chills and fever, in the ER UA was positive, CT abdomen shows right -sided hydronephrosis and right adnexal mass, case was discussed with surgical nurse practitioner by ED physician and recommended treating for pyelonephritis and nephrostomy tube , case was discussed with FABIANA lazo , initial plan was to put nephrostomy tube, ultrasound was repeated by Interventional Radiology, per Angela JUNG Dr , ultrasound does not show significant hydronephrosis and mild pelvic fullness recommended holding nephrostomy tube for now, patient was admitted for sepsis and pyelonephritis Hospital course: Patient was admitted for IV Antibitics for Pyelonephritis and initially thought to have hydronephrosis but before nephrostomy tube can be done, US of kidney showed a mild hydronephrosis and therefore the procedure was not done. Renal function has remained normal. She is afebrile feels better and pain on right flank has resolved. Her urine culture is growing E.coli that is sensitive to Ceftriaxone. Afebril over 24 hours and will like to go home. She w ill have repeat US done in couple of days and have follow up appointment with Clothing Sales Assistant for pelvis fullness and ovarian cyst Time Spent with Patient Time attestation: Total time spent providing and/or coordinating discharge services: Physical Exam Vital Signs: Vital Signs: Last Vital Signs Temp 97.9 F 06/20/20 12:06 Pulse 62 06/20/20 12:06 Resp 18 06/20/20 12:06 BP 102/61 06/20/20 12:06 Pulse Ox 99 06/20/20 12:06 Body Mass Index 33.2 General: AO X 3, no acute distress Resp: CTA bilateral CVS: S1,S2,RRR GI: +BS, NT, no distention Skin: No rash Neuro: motor grossly intact Psych: appropriate affect DS: Data Data Completed and Pending Labs on day of discharge: 06/17/[address] needle [address] Routine Urine Culture Routine 06/17/20 10:02 0.9 % Sodium Chloride [Ns] 1,000 ml IV 999 mls/hr 06/17/20 10:04 0.9 % Sodium Chloride [Ns] 1,000 ml IV 999 mls/hr 06/17/20 10:13 Complete Blood Count Auto Diff Stat Lactic Acid Stat SLIDE REVIEW Stat 06/17/20 10:14 Comprehensive Met. Panel Stat HCG Quantitative Stat Partial Thromboplastin Time Stat Prothrombin Time INR Stat 06/17/20 10:23 0.9 % Sodium Chloride [Ns] 500 ml IV 500 mls/hr 06/17/20 10:51 Ur Preg Test Stat 06/17/20 11:09 CT abdomen pelvis wo con Stat 06/17/20 11:20 cefTRIAXone sodium [Rocephin] 1 gm 0.9 % Sodium Chloride [Ns] 50 ml IV ONCE 06/17/20 11:31 cefTRIAXone sodium [Rocephin] 1 gm .ROUTE .STK-MED ONE 06/17/20 12:53 SARS-CoV2/FLU/RSV Stat 06/17/20 14:32 Morphine Sulfate 4 mg IVPUSH ONCE STA 06/17/20 14:33 Ketorolac Tromethamine [Toradol] 30 mg IVPUSH ONCE STA 06/17/20 15:52 Transfer Order Routine 06/17/20 16:00 iohexoL 300 MG/ML [Omnipaque 300 MG/ML] 50 ml IV .STK-MED ONE 06/17/20 16:01 Lidocaine HCl 1 % MPF [Xylocaine 1 % MPF] 5 ml .ROUTE .STK-MED ONE 06/17/20 16:10 Naloxone HCl [Narcan] 0.4 mg .ROUTE .STK-MED ONE fentaNYL citrate/PF [Sublimaze] 50 mcg .ROUTE .STK-MED ONE 06/17/20 16:11 Midazolam HCl/PF [Versed] 2 mg .ROUTE .STK-MED ONE ceFAZolin Sodium/Dextrose,Iso [Ancef] 2 gm in 50 ml .ROUTE As directed flumazeniL [Romazicon] 0.05 mg .ROUTE .STK-MED ONE 06/17/20 Dinner NPO Diet 06/17/20 20:43 Morphine Sulfate 3 mg IVPUSH Q4H PRN 06/17/20 20:43 Cont. Telemetry w/Vital Sign limit Q4HR Pulse Oximetry Q4HR 06/18/20 05:37 Basic Metabolic Panel DAILY@0600 Complete Blood Count Auto Diff DAILY@0600 06/18/20 11:00 cefTRIAXone sodium [Rocephin] 1 gm 0.9 % Sodium Chloride [Ns] 50 ml IV Q24H 06/18/20 11:35 cefTRIAXone sodium [Rocephin] 1 gm .ROUTE .STK-MED ONE 06/18/20 11:52 US renal BI Stat 06/18/20 12:00 Piperacillin Sodium/Tazobactam [Zosyn] 3.375 gm 0.9 % Sodium Chloride [Ns] 50 ml IV Q6H 06/18/20 12:09 Piperacillin Sodium/Tazobactam [Zosyn] 3.375 gm IV .STK-MED ONE 06/18/20 17:46 Piperacillin Sodium/Tazobactam [Zosyn] 3.375 gm IV .STK-MED ONE 06/19/20 00:41 Piperacillin Sodium/Tazobactam [Zosyn] 3.375 gm IV .STK-MED ONE 06/19/20 05:07 Piperacillin Sodium/Tazobactam [Zosyn] 3.375 gm IV .STK-MED ONE 06/19/20 05:15 Basic Metabolic Panel DAILY@0600 Complete Blood Count Auto Diff DAILY@0600 06/19/20 13:20 Piperacillin Sodium/Tazobactam [Zosyn] 3.375 gm IV .STK-MED ONE 06/19/20 17:45 Piperacillin Sodium/Tazobactam [Zosyn] 3.375 gm IV .STK-MED ONE 06/19/20 23:05 Piperacillin Sodium/Tazobactam [Zosyn] 3.375 gm IV .STK-MED ONE 06/20/20 05:15 Basic Metabolic Panel DAILY@0600 Complete Blood Count Auto Diff DAILY@0600 06/20/20 05:21 Piperacillin Sodium/Tazobactam [Zosyn] 3.375 gm IV .STK-MED ONE Laboratory Last Values WBC 5.0 X10*3/uL (4.8-10.8) 06/20/20 05:15 RBC 3.28 X10*6/uL (4.20-5.50) L 06/20/20 05:15 Hgb 8.4 g/dl (12.0-16.0) L 06/20/20 05:15 Hct 26.6 % (37-47) L 06/20/20 05:15 MCV 81.1 fL (80-98) 06/20/20 05:15 MCH 25.6 pg (27.0-33.0) L 06/20/20 05:15 MCHC 31.6 g/dl (31.0-35.0) 06/20/20 05:15 RDW 15.5 % (11.0-16.0) 06/20/20 05:15 Plt Count 273 X10*3/uL (160-400) 06/20/20 05:15 MPV 10.4 fL (9.4-12.3) 06/20/20 05:15 Immature Gran % (Auto) 0.8 % (0.0-0.4) H 06/20/20 05:15 Neut % (Auto) 57.7 % (45-73) 06/20/20 05:15 Lymph % (Auto) 31.3 % (20-40) 06/20/20 05:15 Glenn % (Auto) 8.2 % (2-11) 06/20/20 05:15 Eos % (Auto) 1.6 % (0-4) 06/20/20 05:15 Baso % (Auto) 0.4 % (0-2) 06/20/20 05:15 Lymph # (Auto) 1.6 X10*3/uL (1.2-4.9) 06/20/20 05:15 Glenn # (Auto) 0.4 X10*3/uL (0.1-1.2) 06/20/20 05:15 Eos # (Auto) 0.1 X10*3/uL (0.0-0.4) 06/20/20 05:15 Baso # (Auto) 0.0 X10*3/uL (0.0-0.2) 06/20/20 05:15 Abs Immat Gran (auto) 0.04 X10*3/uL (0.00-0.03) H 06/20/20 05:15 Absolute Neuts (auto) 2.9 X10*3/uL (2.0-8.3) 06/20/20 05:15 Absolute Nucleated RBC 0.000 X10*3/uL (0.0-0.012) 06/20/20 05:15 Nucleated RBC % (auto) 0.0 /100WBC (0.0-0.2) 06/20/20 05:15 Smear Tech's Comments VERIFIED 06/17/20 10:13 PT 14.7 SEC (10.8-13.0) H 06/17/20 10:14 INR 1.2 (0.9-1.1) H 06/17/20 10:14 APTT 28.5 SEC (24.1-38.0) 06/17/20 10:14 Sodium 140 mmol/L (135-145) 06/20/20 05:15 Potassium 3.5 mmol/l (3.3-5.1) 06/20/20 05:15 Chloride 110 mmol/L (96-108) H 06/20/20 05:15 Carbon Dioxide 24 mmol/L (22-29) 06/20/20 05:15 Anion Gap 10 (12-20) L 06/20/20 05:15 BUN 7 mg/dL (9-16) L 06/20/20 05:15 Creatinine 0.74 mg/dL (0.5-1.4) 06/20/20 05:15 Estim Creat Clear Calc 90.9 06/20/20 05:15 Estimated GFR > 60 06/20/20 05:15 Random Glucose 85 mg/dL (60-115) 06/20/20 05:15 Lactic Acid 1.1 mmol/L (0.5-2.0) 06/17/20 10:13 Calcium 7.6 mg/dL (8.4-10.2) L D 06/20/20 05:15 Total Bilirubin 1.1 mg/dL (0.0-1.0) H 06/17/20 10:14 AST 18 U/L (5-31) 06/17/20 10:14 ALT 18 U/L (0-31) 06/17/20 10:14 Alkaline Phosphatase 61 U/L (39-117) D 06/17/20 10:14 Total Protein 7.0 g/dL (6.5-8.0) 06/17/20 10:14 Albumin 3.8 g/dL (3.5-5.0) 06/17/20 10:14 Beta HCG, Quant < 2 mIU/mL 06/17/20 10:14 Urine Color BROWN 06/17/20 10:51 Urine Appearance CLOUDY 06/17/20 10:51 Urine pH 5.5 (5.0-8.0) 06/17/20 10:51 Ur Specific [place] >= 1.030 (1.005-1.025) H 06/17/20 10:51 Urine Protein 2+ MG/DL (NEG-TRACE) H 06/17/20 10:51 Urine Glucose (UA) NEG MG/DL (NEG) 06/17/20 10:51 Urine Ketones 5 MG/DL (NEG) 06/17/20 10:51 Urine Blood 3+ (NEG) H 06/17/20 10:51 Urine Nitrite POS (NEG) H 06/17/20 10:51 Ur Leukocyte Esterase 1+ (NEG) H 06/17/20 10:51 Urine RBC TNTC /HPF (0) H 06/17/20 10:51 Urine WBC TNTC /HPF (0-4) H 06/17/20 10:51 Ur Squamous Epith Cells 2+ /LPF 06/17/20 10:51 Urine Bacteria 4+ /LPF 06/17/20 10:51 Urine Test NEGATIVE (NEGATIVE) 06/17/20 10:51 Coronavirus (PCR) NEGATIVE (Negative) 06/17/20 12:53 Influenza Type A (PCR) NEGATIVE (Negative) 06/17/20 12:53 Influenza Type B (PCR) NEGATIVE (Negative) 06/17/20 12:53 RSV RNA Qual (PCR) NEGATIVE (Negative) 06/17/20 12:53 Preliminary micro results at discharge 06/17/20 10:23 Blood Culture - Preliminary Blood - Venous No growth after 48 hours. 06/17/20 10:13 Blood Culture - Preliminary Blood - Venous No growth after 48 hours. Discharge Plan Discharge Anticipated Discharge Date/Time: 06/20/20 15:30 Patient Disposition: Home, Self-Care Referrals: Physician,Unknown [Primary Care Provider] - Discharge Medications: New cefuroxime axetil 500 mg Tablet 500 mg PO Q12H Qty: 20 RF: 0 Continued ferrous sulfate [iron] 325 mg (65 mg iron) Tablet 325 mg PO DAILY RF: 0 ibuprofen 800 mg tablet 800 mg PO Q8H PRN (Reason: pain) Qty: 60 RF: 0 acetaminophen [Tylenol 8 Hour] 650 mg tablet extended release 650 mg PO Q8H PRN (Reason: pain) Qty: 60 RF: 0 oxycodone [Roxicodone] 5 mg tablet 5 mg PO Q6H PRN (Reason: pain) Qty: 5 RF: 0 docusate sodium 100 mg Capsule 100 mg PO BID RF: 0 levothyroxine 200 mcg Tablet 200 mcg PO DAILY RF: 0 Discharge Orders: Discharge Order (Routine); Ordered 06/20/20 Ordered By: Aaron Caputo Diet: advance to usual diet Activity on Discharge: As tolerated Discharge Date/Time: 06/20/20 16:10 Other Ambulatory Orders: US renal BI (Routine) Timeframe: 20200622 Facility: [facility] - Location: Ultrasound Ordered By: Aaron Caputo Visit Report Forms: Patient Portal Discharge page Care Plan Goals: Full recovery from Pyelonephritis Health Concerns: Pelvis mass that will need further Investigation by FELLER SEAM OPERATOR Plan of Treatment: Take Ceftin as recommended and follow up with Doctoro, call for appointment Call Dr De Souza (FELLER SEAM OPERATOR) for follow and keep already scheduled appointment for further work fur pelvis mass
--- NOTE | 2020-06-20 15:56 | MHC.CM.PN ---
PT WILL DC HOME TODAY WITH NO SERVICES
== END 2020-06-20 16:10 | disposition home or self-care (01) | DRG 720 ==
LOC: HO.ED 17:11 → HO.IMC 17:17
PROVIDERS: Physician Assistant; Radiology Diagnostic Radiology; Admitting Provider Internal Medicine; Emergency Provider Emergency Medicine; Visit Provider Internal Medicine
DX: A41.9 Sepsis, unspecified organism (principal); N12 Tubulo-interstitial nephritis, not specified as acute or chronic; D50.9 Iron deficiency anemia, unspecified; E03.9 Hypothyroidism, unspecified; N93.9 Abnormal uterine and vaginal bleeding, unspecified; R31.9 Hematuria, unspecified; B96.20 Unspecified Escherichia coli [E. coli] as the cause of diseases classified elsewhere; Z20.828 Contact with and (suspected) exposure to other viral communicable diseases; R19.09 Other intra-abdominal and pelvic swelling, mass and lump; Z79.1 Long term (current) use of non-steroidal anti-inflammatories (NSAID); Z21 Asymptomatic human immunodeficiency virus [HIV] infection status; Z79.890 Hormone replacement therapy; Z79.891 Long term (current) use of opiate analgesic; Z79.899 Other long term (current) drug therapy
CPT/HCPCS: 0241U; 36415; 74176; 76775; 76942; 80048; 80053; 81001; 81003; 81025; 83605; 84702; 85025; 85610; 85730; 87040; 87086; 87088; 87186; 96361; 96365; 96375; 99285; C1894; J0696; J1885; J2270; J2543

== ENCOUNTER → 2020-06-23 15:37 | Outpatient (BNVA) | payer MEDICAID, SELFPAY | PROVIDERS: Visit Provider Obstetrics & Gynecology | DX: Z76.89 Persons encountering health services in other specified circumstances (principal) ==

== ENCOUNTER → 2020-06-24 13:33 | Outpatient (BNVA) | payer MEDICAID, SELFPAY | PROVIDERS: Visit Provider Urology | DX: N13.30 Unspecified hydronephrosis (principal); N12 Tubulo-interstitial nephritis, not specified as acute or chronic | CPT/HCPCS: 99202 ==

== ENCOUNTER 2020-07-05 08:04 | Day surgery (SDC) | payer MEDICAID, SELFPAY ==
--- NOTE | 2020-07-02 08:48 | P.CONAN_ITS ---
Documented by User: Tabatha Hernández 07/02/20 09:03 HPI - Anesthesia Eval Consult details Narrative: 44yo F for Cystoscopy,Retrograde with Poss Stent 06/17/20 [facility] D/C for pyelonephritis with abx tx 06/11/20 s/p hysteroscopy with GA-LMA 4 PMFSH Past Medical History Medical History Autoimmune disorder B12 deficiency Chronic hepatitis C HIV (human immunodeficiency virus infection) Hydronephrosis Hypothyroidism Iron deficiency anemia Family History Family History Other Hypertension Surgical History Surgical History H/O tubal ligation H/O: Social History Social History Household Members: Children Housing: Apartment Alcohol intake: never Smoking Status: Former smoker Second Hand Smoke Exposure: No Use of substances other than those prescribed or required for medical reasons: No Advance Directives: No Advance Directives Information Provided: Yes Recently lost weight without trying: No service: No Current occupational status: unemployed Sexual orientation: Straight/Heterosexual Gender identity: female Meds Allergies Allergy/AdvReac Type Severity Reaction Status Date / Time No Known Allergies Allergy Verified 06/24/20 13:49 [No Known Allergies*] Home Medications Medication Instructions Recorded Confirmed Type docusate sodium 100 mg PO BID 05/06/20 06/17/20 History levothyroxine 200 mcg PO DAILY 05/06/20 06/17/20 History ferrous sulfate [iron] 325 mg PO DAILY 06/03/20 06/17/20 History Exam Exam Date and Time: July 02, 2020 0848 Pertinent Lab Results Pertinent Lab Results: Laboratory Tests 06/20/20 06/20/20 05:15 05:15 WBC 5.0 Hgb 8.4 L Hct 26.6 L Plt Count 273 Sodium 140 Potassium 3.5 Chloride 110 H Carbon Dioxide 24 BUN 7 L Creatinine 0.74 Documented by User: Enriqueta Walton 07/05/20 09:36 [facility] Past Medical History Medical History Autoimmune disorder B12 deficiency Chronic hepatitis C HIV (human immunodeficiency virus infection) Hydronephrosis Hypothyroidism Iron deficiency anemia Family History Family History Other Hypertension Surgical History Surgical History H/O tubal ligation H/O: Social History Social History Household Members: Children Housing: Apartment Alcohol intake: never Smoking Status: Former smoker Second Hand Smoke Exposure: No Use of substances other than those prescribed or required for medical reasons: No Advance Directives: No Advance Directives Information Provided: Yes Recently lost weight without trying: No service: No Current occupational status: unemployed Sexual orientation: Straight/Heterosexual Gender identity: female Meds Allergies Allergy/AdvReac Type Severity Reaction Status Date / Time No Known Allergies Allergy Verified 06/24/20 13:49 [No Known Allergies*] Home Medications Medication Instructions Recorded Confirmed Type docusate sodium 100 mg PO BID 05/06/20 06/17/20 History levothyroxine 200 mcg PO DAILY 05/06/20 06/17/20 History ferrous sulfate [iron] 325 mg PO DAILY 06/03/20 06/17/20 History Exam Airway Mallampati Class: II TM Dist: >3cm Neck ROM: Full Assessment and Plan Assessment Anesthesia Assessment: Anesthesia Plan Discussed and Chart Reviewed Final Anesthetic Review NPO: Yes ASA Class: III Final Preanesthetic Review: No Changes in Pt Med Stat, Meds/Allgs Chart Reviewed, Consent Obtained/Reviewed and Anes Risks/Benef Reviewed Patient Risk: Intermediate Procedure Risk: Low Assessment/Block/Sedation in SS: Assess/Block/Sedation-SS Anesthetic Plan Anesthetic Plan: GA Disposition: Standard PACU
[2020-07-05] VITALS (7 sets, daily range): BP systolic 90–111; BP diastolic 53–79; PULSE 51–77; RESP 16–18; TEMP 36.2–36.7; O2SAT 96–100
--- NOTE | 2020-07-05 08:10 | PC.NURSE ---
PATIENT CAME AN HOUR LATE PATIENT RELATIONS REPRESENTATIVE CALLED
[2020-07-05] MEDS: levoFLOXacin 500 MG TABLET PO (08:30)
[2020-07-05] MEDS: Lactated Ringers 1,000 ML 100 ML IVCONT (08:40)
--- NOTE | 2020-07-05 09:38 | FL_ITS ---
EXAMINATION: XR FLUOROSCOPY WITH IMAGES CLINICAL INFORMATION: Right pyelonephritis COMPARISON: Previous limited right renal ultrasound 06/17/[address] can of the abdomen and pelvis same day TECHNIQUE: Fluoroscopy performed by Dr. Cook. Fluoroscopy time: 36 seconds Dose: 11 mgy Images: 1 FINDINGS: Single image demonstrates opacification of slightly dilated right renal calyces with contrast. There is a right internal ureteral stent with proximal pigtail projecting over the central right kidney. FL/FL guidance in OR IMPRESSION: Fluoroscopy guidance for right internal ureteral stent placement
--- NOTE | 2020-07-05 09:44 | MHC.SHP ---
Pre-Procedural Eval Section A The patient is an INPATIENT: No Changes since office visit: No Cold of Flu in the past 2 weeks, No New Medical Problems, No Changes in Medication and No Patient answered all questions The History & Physical has been completed within 30 days and I have reviewed it.: Yes Section B Chief Complaint: Hydronephrosis Allergies: Allergies Allergy/AdvReac Type Severity Reaction Status Date / Time No Known Allergies Allergy Verified 06/24/20 13:49 [No Known Allergies*] Plan Diagnosis/Plan: Unchanged I have reviewed the history and physical and performed a pertinent physical examination on my patient. No changes have occurred unless specified. Right retrograde, possible ureteroscopy and stent placement
--- NOTE | 2020-07-05 10:14 | P.BOP_ITS ---
Brief Operative Note Date of Service: 07/05/20 Pre-op diagnosis: Right hydronephrosis Post-op diagnosis: same Procedure: 1. Cystoscopy right retrograde 2. Right stent placement Implants: Six Portuguese by 22 cm double-J ureteric stent Surgeon: Saroj Cook MD Anesthesia: MAC Estimated blood loss (mL): 0 Pathology: none sent Condition: stable Disposition: same day
--- NOTE | 2020-07-05 10:14 | P.OP_ITS ---
Operative Note Operative Note Date of Service: 07/05/20 Narrative: PreOperative Diagnosis: Right hydronephrosis Post Operative Diagnosis: Right chronic hydronephrosis Procedure: 1. Right retrograde, 2. Right stent placement Surgeon: Dr Saroj Cook Anesthesia: Mac Indications for procedure: This is a 44-year-old female. Had been found to have uterine bleeding. At that point in time was noted to have right hydroureteronephrosis down to the level of bladder. Had a right ovarian cyst. Has had pain on the right side. Recommendation for right retrograde right stent placement to see if pain resolved. Understands that it may not Procedure: After informed consent was verified the patient was brought to the operating room and placed in a supine position. anesthesia was administered per protocol. Twenty-one [place] cystoscope inserted per urethra. Left ureteric orifice normal position. Right ureteric orifice was high on the bladder wall and wide open. Is though prior reimplant been performed as a child however there was no other obvious all visible scarring. The right ureteric orifice was patulous and was cannulated and retrograde examination was performed. There was hydroureteronephrosis down to the level of the bladder. We were able to pass a wire easily. A 6 [place] by 22 cm stent was passed without difficulty. It appears that she has chronic right hydroureteronephrosis. We will see if the stent helps with relief of any of her pain and she can be reviewed in office in 2 weeks time. She tolerated procedure well was extubated in operating room transferred in stable condition to the recovery area. Pathology: None Drains: Six [place] by 22 cm double-J ureteric stent
[2020-07-05] MEDS: Phenazopyridine HCL 100 MG TABLET PO (12:20)
--- NOTE | 2020-07-05 12:24 | HO.POSTANES ---
Post Anesthesia Evaluation Post Anesthesia Evaluation Vital Signs: Vital Signs Temp Pulse Resp BP Pulse Ox 07/05/20 11:53 98.1 F 61 18 102/79 100 07/05/20 11:35 51 18 111/70 96 07/05/20 11:05 57 16 102/70 96 07/05/20 10:46 55 18 105/62 100 07/05/20 10:31 56 16 98/60 100 07/05/20 10:16 98.1 F 69 16 90/53 L 98 07/05/20 08:17 97.2 F 77 16 107/70 100 Anesthesia: Monitored Mental Status: Awake Pain Control: Satisfactory Nausea/Vomiting: None Hydration: Adequate Anesthesia-Related Issues: No Anes. Related Issues
== END 2020-07-05 12:23 | disposition home or self-care (01) ==
PROVIDERS: Visit Provider Urology
PROC: 0TJB8ZZ Inspection of Bladder, Via Natural or Artificial Opening Endoscopic (ICD-10-PCS; CPT 52000; principal; 2020-07-05 09:00)
DX: N13.30 Unspecified hydronephrosis (principal); N12 Tubulo-interstitial nephritis, not specified as acute or chronic; D50.9 Iron deficiency anemia, unspecified; E03.9 Hypothyroidism, unspecified; B20 Human immunodeficiency virus [HIV] disease; E53.8 Deficiency of other specified B group vitamins; Z98.51 Tubal ligation status; Z79.899 Other long term (current) drug therapy
CPT/HCPCS: 52332; C1758; C2617; J1100; J2250; J2405; J3010; Q9967

== ENCOUNTER 2020-07-12 16:03 | Outpatient (REF) | payer MEDICAID, SELFPAY ==
--- NOTE | 2020-07-12 16:45 | MR_ITS ---
EXAMINATION: MR PELVIS WITHOUT AND WITH CONTRAST CLINICAL INFORMATION: Right ovarian cyst. COMPARISON: Previous pelvic ultrasound most recent May [address] of the abdomen and pelvis May 2020 TECHNIQUE: Sagittal, axial and coronal sequences through the pelvis with and without contrast. FINDINGS: The uterus is anteverted and measures 11 x 6 x 6.8 cm in dimension. No focal uterine lesion is seen. Endometrial thickness measures 1.4 cm. The junctional zone is normal appearing. There are nabothian cysts in the cervix. There is a 6.1 x 5.3 x 5.1 cm right pelvic mass. This is adjacent to the right body of the uterus and lower uterine segment. This displaces the uterus to the left. This is low signal on T1-weighted sequences, heterogeneous signal on T2-weighted sequences and demonstrates heterogeneous enhancement. This has prominent vascularity. This appears separate from the uterus and right ovary. No evidence of fat or blood product is seen. This is increased in size measuring 3.3 x 2.4 x 3 cm on January 2020 pelvic ultrasound and is new from previous pelvic ultrasound from 2011. The right ovary measures 2.2 x 2.4 x 1.6 cm and is normal-appearing. The left ovary is normal-appearing and measures 1.7 x 3.2 x 2.4 cm. There is no fluid in the pelvis. There is an enlarged left inguinal lymph node that measures 1.2 x 2 cm. This corresponds to a calcified lymph node [address] scan. No other enlarged lymph nodes are seen. There is no ascites. Visualized bowel is unremarkable. No hernia is seen. Vascular structures are unremarkable. Bony structures are unremarkable. MR/MR pelvis wo/w con IMPRESSION: 6.1 x 5.3 x 5.1 cm solid right pelvic mass increasing in size from previous exams. This appears separate from the uterus and right ovary and displaces the uterus to the left. Differential would include an abnormal enlarged lymph node, metastatic disease and primary soft tissue neoplasm such as sarcoma or benign desmoid tumor or fibroma. Enlarged left inguinal lymph node. Surgical consultation is recommended.
== END 2020-07-12 16:04 | disposition home or self-care (01) ==
LOC: HO.MRI 16:03
PROVIDERS: Visit Provider Obstetrics & Gynecology
DX: N83.201 Unspecified ovarian cyst, right side (principal)
CPT/HCPCS: 72197; A9585

== ENCOUNTER → 2020-07-19 11:47 | Outpatient (BNVA) | payer MEDICAID, SELFPAY | PROVIDERS: Visit Provider Obstetrics & Gynecology ==

== ENCOUNTER → 2020-07-20 15:16 | Outpatient (BNVA) | payer MEDICAID, SELFPAY | PROVIDERS: PCP Nurse Practitioner Family; Visit Provider Urology | DX: Z13.89 Encounter for screening for other disorder (principal) | CPT/HCPCS: 99202 ==

== ENCOUNTER 2020-08-06 12:55 | Outpatient (REF) | payer MEDICAID, SELFPAY ==
[2020-08-06 16:17] LABS: Alanine Aminotransferase 11 U/L (0-31); Albumin Level 4.4 g/dL (3.5-5.0); Alkaline Phosphatase 69 U/L (39-117); Anion Gap 13 (12-20); Aspartate Amino Transferase 20 U/L (5-31); Bilirubin Total 0.5 mg/dL (0.0-1.0); Blood Urea Nitrogen 17 mg/dL (9-16); Carbon Dioxide 26 mmol/L (22-29); Chloride 103 mmol/L (96-108); Estimated Glomerular Filt Rate > 60; Glucose Random 79 mg/dL (60-115); Magnesium 2.3 mg/dL (1.6-2.6); Phosphorus 4.1 mg/dL (2.7-4.5); Sodium 138 mmol/L (135-145); Total Protein 8.1 g/dL (6.5-8.0)
[2020-08-06 16:49] LABS: Vitamin B12 < 146 pg/mL (200-900)
[2020-08-06 17:14] LABS: Free T4 (Free Thyroxine) < 0.40 ng/dL (0.71-1.85); Thyroid Stimulating Hormone 72.14 uIU/mL (0.32-4.0); Vitamin D 25-OH Total 12.2 ng/mL (>30)
[2020-08-07 05:57] LABS: Thyroglobulin Antibodies 1 IU/mL (< or = 1); Thyroid Peroxidase Antibodies >900 IU/mL (<9)
[2020-08-07 13:51] LABS: Immunoglobulin A 139 mg/dL (47-310)
[2020-08-09 16:47] LABS: Calcium (PTHI) 9.2 mg/dL (8.6-10.2); PTHI 57 pg/mL (14-64)
[2020-08-09 22:37] LABS: Transglutaminase Ab IgG 4 U/mL
[2020-08-10 09:11] LABS: Parietal Cell Antibody 70.2 Unit (<=20.0)
[2020-08-11 02:07] LABS: VITAMIN D (1,25 OH) D3 61 pg/mL; Vit D (1,25-Dihydroxy) Total 61 pg/mL (18-72); Vitamin D (1,25 OH) D2 <8 pg/mL
[2020-08-11 21:06] LABS: Intrinsic Factor Antibodies Negative (Negative)
[2020-08-12 12:02] LABS: Endomysial IgA Antibody Negative (Negative)
== END 2020-08-06 12:56 | disposition home or self-care (01) ==
LOC: HO.LAB 12:55
PROVIDERS: PCP Nurse Practitioner Family; Visit Provider Internal Medicine Endocrinology, Diabetes & Metabolism
DX: E03.9 Hypothyroidism, unspecified (principal); E83.51 Hypocalcemia; E53.8 Deficiency of other specified B group vitamins; Z79.899 Other long term (current) drug therapy
CPT/HCPCS: 36415; 80053; 82306; 82607; 82652; 82784; 83516; 83735; 83970; 84100; 84439; 84443; 86255; 86256; 86340; 86376; 86800; 99202

== ENCOUNTER 2020-08-12 14:23 | Outpatient (REF) | payer MEDICAID, SELFPAY ==
[2020-08-12 16:27] LABS: Creatinine, mg/dL 55.44
[2020-08-13 06:40] LABS: Creatinine, 24Hr Urine 1.2 G/Day (1.0-2.0); Total Volume 24 Hour Urine 2200 mL
[2020-08-17 19:51] LABS: Calcium, 24 Hr Urine 174 mg/24 h; Calcium/Creatinine Ratio 134 mg/g creat (30-275); Creatinine 24Hr Urine 1.34 g/24 h (0.50-2.15)
== END 2020-08-12 14:24 | disposition home or self-care (01) ==
LOC: HO.LNP 14:23
PROVIDERS: Visit Provider Internal Medicine Endocrinology, Diabetes & Metabolism
DX: E53.8 Deficiency of other specified B group vitamins (principal)
CPT/HCPCS: 82340; 82570

== ENCOUNTER 2020-09-13 13:44 | Emergency (ER) | payer MEDICAID, SELFPAY ==
--- NOTE | ~2020-09-13 | CT_ITS ---
EXAMINATION: CT ABDOMEN AND PELVIS WITHOUT CONTRAST CLINICAL INFORMATION: Right flank pain. UTI. COMPARISON: CT abdomen and pelvis noncontrast 06/17/2020, pelvic ultrasound 06/13/2020, MR pelvis without and with gadolinium contrast 07/12/2020. TECHNIQUE: Multidetector volumetric imaging was performed from the superior aspect of the liver through the pubic symphysis. Sagittal and coronal reformatted images were obtained on the technologist's workstation. This CT examination was performed using dose optimization techniques as appropriate, variously including the following: *Automated exposure control *Adjustment of mA and/or kV according to patient size (this includes techniques or standardized protocols for targeted exams where dose is matched to indication/reason for exam; i.e. extremities or head) *Use of iterative reconstruction technique DLP: 611 mGy-cm FINDINGS: LUNG BASES: The visualized lung bases are unremarkable. LIVER, GALLBLADDER, AND BILIARY TREE: The liver is normal in size, shape, and attenuation. No focal hepatic lesion or biliary ductal dilatation is present. The gallbladder is unremarkable with no evidence of radiopaque gallstones, gallbladder wall thickening, or obvious pericholecystic inflammatory changes. PANCREAS: Unremarkable. SPLEEN: Unremarkable. Incidental 0.8 cm splenule left upper quadrant. ADRENAL GLANDS: Unremarkable. KIDNEYS AND URETERS: There is a right ureteral stent in position. The hydronephrosis and perinephric stranding noted on prior CT have resolved. There are no urinary tract calculi. BLADDER: No bladder calculus. Stent in position. GASTROINTESTINAL TRACT: No bowel obstruction or inflammatory changes in the bowel or mesentery. The appendix is normal. There is no ascites or fluid collection. ABDOMINAL WALL: Small fat-containing umbilical hernia again seen. There are probable 2 sites of subcutaneous injection mid left and mid right abdomen with small subcutaneous densities and punctate gas bubbles. LYMPH NODES: Heavily calcified left inguinal node stable. VASCULAR: Unremarkable. PELVIC VISCERA: The solid right adnexal mass is no longer demonstrated. There are some surgical clips right deep pelvis. No ascites or loculated fluid collection. OSSEOUS STRUCTURES: Unremarkable. CT/CT abdomen pelvis wo con IMPRESSION: 1. Right ureteral stent in position. Resolution right hydronephrosis and perinephric stranding since prior CT 06/17/2020. No hydronephrosis, calculi, or perinephric stranding. 2. Interval resection right adnexal solid mass. No pelvic ascites or fluid collection. 3. No bowel obstruction or focal inflammatory changes. 4. Probable 2 sites subcutaneous injection anterior abdomen, one left and one on right. Clinically correlate.
[2020-09-13 13:46] VITALS: BP 104/56; PULSE 96; RESP 18; TEMP 36.9; O2SAT 100; BMI 31.1
[2020-09-13 14:13] LABS: Glucose Urine UA NEG (NEG); Leukocyte Esterase Urine 2+ (NEG); Nitrite Urine POS (NEG); PH 6.5 (5.0-8.0); Specific Gravity - Urine 1.015 (1.005-1.025); UACC Culture Trigger YES; Urine Blood 1+ (NEG); Urine Ketones NEG (NEG); Urine Protein TRACE MG/DL (NEG-TRACE)
[2020-09-13 14:22] LABS: Appearance Urine CLEAR; Color Urine YELLOW
[2020-09-13 14:42] LABS: Bacteria Urine 2+ /LPF; Squamous Epithelial Cell Urine 2+ /LPF; WBC Urine 30-49 /HPF (0-4)
[2020-09-13 15:31] LABS: MANUAL DIFF FLAG NO
[2020-09-13 15:33] LABS: Basophils Percent Auto 0.3 % (0-2); Eosinophils Absolute Auto 0.1 X10*3/uL (0.0-0.4); Eosinophils Percent Auto 1.5 % (0-4); Hematocrit 29.7 % (37-47); Hemoglobin 9.2 g/dl (12.0-16.0); Imm Gran Abs Auto 0.02 X10*3/uL (0.00-0.03); Imm Gran Pct Auto 0.3 % (0.0-0.4); Lymphocytes Absolute Auto 1.6 X10*3/uL (1.2-4.9); Lymphocytes Percent Auto 26.9 % (20-40); Mean Corpuscular Volume 83.9 fL (80-98); Monocytes Absolute Auto 0.6 X10*3/uL (0.1-1.2); Monocytes Percent Auto 9.5 % (2-11); Neutrophils Absolute Auto 3.7 X10*3/uL (2.0-8.3); Neutrophils Percent Auto 61.5 % (45-73); Platelet Count 390 X10*3/uL (160-400); Red Blood Count 3.54 X10*6/uL (4.20-5.50); Red Cell Distribution Width 15.2 % (11.0-16.0); White Blood Count 6.1 X10*3/uL (4.8-10.8)
--- NOTE | 2020-09-13 15:40 | ED_ITS ---
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 No fevers, chills, vomiting. No vaginal bleeding. Patient was recently diagnosed Leiomyosarcoma and is pending an appointment in [place] for and oncology evaluation. She is not currently on chemo or radiation. Related Data Previous Rx's Medication Instructions Recorded acetaminophen [Tylenol 8 Hour] 650 mg PO Q8H PRN #60 tab 06/11/20 calcium carbonate 600 mg calcium 600 mg PO DAILY 30 Days #30 tab 08/06/20 (1,500 mg) tablet cholecalciferol (vitamin D3) 50 50 mcg PO DAILY 30 Days #30 cap 08/06/20 mcg (2,000 unit) capsule cyanocobalamin (vitamin B-12) 1,000 mcg SUBLINGUAL DAILY 30 Days 08/06/20 1,000 mcg sublingual tablet #30 tab levothyroxine 200 mcg tablet 200 mcg PO DAILY 90 Days #90 tab 08/06/20 cefpodoxime 100 mg PO Q12H #14 tab 09/13/20 phenazopyridine [Pyridium] 200 mg PO TID PRN #10 tab 09/13/20 Allergies Allergy/AdvReac Type Severity Reaction Status Date / Time No Known Allergies Allergy Verified 09/13/20 13:55 [No Known Allergies*] Review of Systems Review of Systems Yes all other systems are reviewed and are negative Constitutional: Reports no additional constitutional complaints, Denies body ache(s), Denies chills, Denies fever(s), Denies headache(s) and Denies weakness Eyes: Reports no additional eye complaints and Denies change in vision Reports system reviewed and no additional complaints, except as documented, De nies dizziness, Denies headache(s), Denies nasal congestion, Denies nasal discharge and Denies neck pain Cardiovascular: Reports no additional cardiovascular complaints, Denies chest pain, Denies leg edema and Denies dyspnea Respiratory: Reports no additional respiratory complaints, Denies cough and Denies dyspnea Gastrointestinal: Reports no additional gastrointestinal complaints, Reports abdominal pain, Denies diarrhea, Denies nausea and Denies vomiting Genitourinary: Reports no additional female genitourinary complaints and Denies urinary incontinence Comments: +dysuria Musculoskeletal: Reports no additional musculoskeletal complaints, Reports back pain, Denies arthralgias, Denies joint swelling, Denies neck pain, Denies numbness and Denies tingling Skin/Breast: Reports system reviewed and no additional complaints, except as docu and Denies rash Reports system reviewed and no additional complaints, except as documented, Denies Abnormal speech present, Denies dizziness, Denies headache(s), Denies numbness, Denies tingling and Denies weakness Physical Exam Vital Signs: Vital Signs: Last Vital Signs Temp 98.6 F 09/13/20 15:45 Pulse 76 09/13/20 15:45 Resp 18 09/13/20 15:45 BP 102/56 L 09/13/20 15:45 Pulse Ox 100 09/13/20 15:45 Body Mass Index 31.1 Const: General: cooperative, healthy appearing, comfortable and no acute distress Orientation/consciousness: patient oriented x3 Limitations: no limitations HENMT: Head: Yes normal to inspection Ears: hearing grossly normal bilaterally General nose exam: Normal external nose present Face and sinus: Yes normal facial exam Mouth: Normal oral and palatal mucosa present Throat: Yes posterior oropharynx normal Eyes: General: appearance normal, both eyes and all related structures Pupils: Equal, round and reactive pupils present Neck: Neck: Yes normal visual inspection Chest: Chest palpation & inspection: normal inspection of the chest Resp: Effort & Inspection: normal respiratory effort Auscultation: clear to auscultation bilaterally Cardio: Rate: regular rate Rhythm: regular rhythm Peripheral pulses: Peripheral pulses 2+ throughout GI: Inspection: Yes normal to inspection Palpation (GI): Soft to palpation and nontender Auscultation: normal bowel sounds : General: Yes CVA tenderness (mild right ) Back/Spine/Pelvis: Back: CVA tenderness (mild right ) Thoracic/Lumbar Spine: thoracic and lumbar spine normal to inspection Skin: General skin exam: no rashes or lesions noted Neuro: General: patient oriented x3, no focal motor deficits and normal sensation to monofilament Cranial nerves: Yes Equal, round and reactive pupils present Cognition (Neuro): normal cognition Speech: No Abnormal speech present Gait exam (Neuro): Normal gait present Motor exam (neuro): 5/5 motor strength present throughout Extrem: General: Yes normal to inspection Course Course Course Narrative: 45-year-old male here with flank pain and urinary symptoms for days history of pyelonephritis and recent removal of a right pelvic mass which is leiomyosarcoma. Patient is pending oncology team involved and has not started chemotherapy radiation yet. 1503-UA consistent with UTI. Will need labs including blood cultures and lactic acid. At this time infection suspected. Antibiotics ordered. CT abdomen and pelvis ordered to rule out pyelonephritis. 1740-CT shows no evidence of pyelonephritis. No hydro. Stent in place. Labs show no leukocytosis. Renal function is normal. Patient is feeling improved. Will discharge home with oral antibiotics. Reviewed worrisome signs and symptoms when to return to the emergency department. Comfortable discharge home. MDM - Abdominal Pain MDM Narrative Medical decision making narrative: UTI, pyelonephritis, renal colic Lab Data Result diagrams: 09/13/20 15:20 09/13/20 15:20 Labs: Lab Results 09/13/20 09/13/20 09/13/20 Range/Units 14:01 14:01 15:20 WBC 6.1 (4.8-10.8) X10*3/uL RBC 3.54 L (4.20-5.50) X10*6/uL Hgb 9.2 L (12.0-16.0) g/dl Hct 29.7 L (37-47) % MCV 83.9 (80-98) fL MCH 26.0 L (27.0-33.0) pg MCHC 31.0 (31.0-35.0) g/dl RDW 15.2 (11.0-16.0) % Plt Count 390 D (160-400) X10*3/uL MPV 10.0 (9.4-12.3) fL Immature Gran % (Auto) 0.3 (0.0-0.4) % Neut % (Auto) 61.5 (45-73) % Lymph % (Auto) 26.9 (20-40) % [place] % (Auto) 9.5 (2-11) % Eos % (Auto) 1.5 (0-4) % Baso % (Auto) 0.3 (0-2) % Lymph # (Auto) 1.6 (1.2-4.9) X10*3/uL [place] # (Auto) 0.6 (0.1-1.2) X10*3/uL Eos # (Auto) 0.1 (0.0-0.4) X10*3/uL Baso # (Auto) 0.0 (0.0-0.2) X10*3/uL Abs Immat Gran (auto) 0.02 (0.00-0.03) X10*3/uL Absolute Neuts (auto) 3.7 (2.0-8.3) X10*3/uL Absolute Nucleated RBC 0.000 (0.0-0.012) X10*3/uL Nucleated RBC % (auto) 0.0 (0.0-0.2) /100WBC Hold Blue Top Sodium (135-145) mmol/L Potassium (3.3-5.1) mmol/L Chloride (96-108) mmol/L Carbon Dioxide (22-29) mmol/L Anion Gap (12-20) BUN (9-16) mg/dL Creatinine (0.5-1.4) mg/dL Estim Creat Clear Calc Estimated GFR Random Glucose (60-115) mg/dL Lactic Acid (0.5-2.0) mmol/L Calcium (8.4-10.2) mg/dL Urine Color YELLOW Urine Appearance CLEAR Urine pH 6.5 (5.0-8.0) Ur Specific [place] 1.015 (1.005-1.025) Urine Protein TRACE (NEG-TRACE) MG/DL Urine Glucose (UA) NEG (NEG) MG/DL Urine Ketones NEG (NEG) MG/DL Urine Blood 1+ H (NEG) Urine Nitrite POS H (NEG) Ur Leukocyte Esterase 2+ H (NEG) Urine RBC 5-9 H (0) /HPF Urine WBC 30-49 H (0-4) /HPF Ur Squamous Epith Cells 2+ /LPF Urine Bacteria 2+ /LPF Urine Test NEGATIVE (NEGATIVE) 09/13/20 09/13/20 09/13/20 Range/Units 15:20 15:20 15:20 WBC (4.8-10.8) X10*3/uL RBC (4.20-5.50) X10*6/uL Hgb (12.0-16.0) g/dl Hct (37-47) % MCV (80-98) fL MCH (27.0-33.0) pg MCHC (31.0-35.0) g/dl RDW (11.0-16.0) % Plt Count (160-400) X10*3/uL MPV (9.4-12.3) fL Immature Gran % (Auto) (0.0-0.4) % Neut % (Auto) (45-73) % Lymph % (Auto) (20-40) % [place] % (Auto) (2-11) % Eos % (Auto) (0-4) % Baso % (Auto) (0-2) % Lymph # (Auto) (1.2-4.9) X10*3/uL [place] # (Auto) (0.1-1.2) X10*3/uL Eos # (Auto) (0.0-0.4) X10*3/uL Baso # (Auto) (0.0-0.2) X10*3/uL Abs Immat Gran (auto) (0.00-0.03) X10*3/uL Absolute Neuts (auto) (2.0-8.3) X10*3/uL Absolute Nucleated RBC (0.0-0.012) X10*3/uL Nucleated RBC % (auto) (0.0-0.2) /100WBC Hold Blue Top SEE NOTE Sodium 141 (135-145) mmol/L Potassium 3.8 (3.3-5.1) mmol/L Chloride 105 (96-108) mmol/L Carbon Dioxide 27 (22-29) mmol/L Anion Gap 13 (12-20) BUN 19 H (9-16) mg/dL Creatinine 0.82 (0.5-1.4) mg/dL Estim Creat Clear Calc 85.0 Estimated GFR > 60 Random Glucose 85 (60-115) mg/dL Lactic Acid 0.8 (0.5-2.0) mmol/L Calcium 9.6 D (8.4-10.2) mg/dL Urine Color Urine Appearance Urine pH (5.0-8.0) Ur Specific [place] (1.005-1.025) Urine Protein (NEG-TRACE) MG/DL Urine Glucose (UA) (NEG) MG/DL Urine Ketones (NEG) MG/DL Urine Blood (NEG) Urine Nitrite (NEG) Ur Leukocyte Esterase (NEG) Urine RBC (0) /HPF Urine WBC (0-4) /HPF Ur Squamous Epith Cells /LPF Urine Bacteria /LPF Urine Test (NEGATIVE) Discharge Plan Discharge Clinical Impression: UTI (urinary tract infection) Patient Disposition: Home, Self-Care Instructions: Urinary Tract Infection in Women (ED) Additional Instructions: Increase fluids, rest Return for fever >100.4, 2 or more vomiting episodes Prescriptions: New phenazopyridine [Pyridium] 200 mg tablet 200 mg PO TID PRN (Reason: pain) Qty: 10 RF: 0 cefpodoxime 100 mg tablet 100 mg PO Q12H Qty: 14 RF: 0 No Action acetaminophen [Tylenol 8 Hour] 650 mg tablet extended release 650 mg PO Q8H PRN (Reason: pain) Qty: 60 RF: 0 levothyroxine 200 mcg tablet 200 mcg PO DAILY 90 Days Qty: 90 RF: 1 calcium carbonate [Calcium 600] 600 mg calcium (1,500 mg) tablet 600 mg PO DAILY 30 Days Qty: 30 RF: 6 cholecalciferol (vitamin D3) 50 mcg (2,000 unit) capsule 50 mcg PO DAILY 30 Days Qty: 30 RF: 6 cyanocobalamin (vitamin B-12) 1,000 mcg tablet, sublingual 1,000 mcg sublingual DAILY 30 Days Qty: 30 RF: 6 Referrals: [facility] [Primary Care Provider] - 2 days Interventions: ED Discharge Assessment Last Done: 09/13/20 17:35 Discharge Date/Time: 09/13/20 17:36 Print Language: Barbadian [facility] Past Medical History Attestation statement: The following information was validated with the patient. Source: old records reviewed and nursing notes reviewed Medical History (Updated 09/13/20 @ 16:54 by Sabiha Welch NP) Autoimmune disorder B12 deficiency Chronic hepatitis C HIV (human immunodeficiency virus infection) Hydronephrosis Hypocalcemia Hypothyroidism Iron deficiency anemia Leiomyosarcoma Surgical History H/O tubal ligation H/O: Family History Family History Sister Diabetes Father Alzheimer disease Mother No problems noted. Social History Social History Household Members: Children Housing: Apartment Alcohol intake: never Smoking Status: Former smoker Second Hand Smoke Exposure: No Advance Directives: No Advance Directives Information Provided: Yes service: No Current occupational status: unemployed Sexual orientation: Straight/Heterosexual Gender identity: female
[2020-09-13] MEDS: cefTRIAXone sodium 1 GM in 0.9 % Sodium Chloride 50 ML IV (15:43)
[2020-09-13 15:45] VITALS: BP 102/56; PULSE 76; RESP 18; TEMP 37; O2SAT 100
[2020-09-13 15:49] LABS: Lactic Acid 0.8 mmol/L (0.5-2.0)
[2020-09-13 15:50] LABS: UPreg QC Valid YES; Urine Pregnancy NEGATIVE (NEGATIVE)
--- NOTE | 2020-09-13 15:50 | PC.NURSE ---
Pt sitting up talking on phone. No pain. Abx up as ordered. Waiting for lab/CT results. Aware of plan of care
[2020-09-13 15:52] LABS: Anion Gap 13 (12-20); Blood Urea Nitrogen 19 mg/dL (9-16); Calcium 9.6 mg/dL (8.4-10.2); Carbon Dioxide 27 mmol/L (22-29); Chloride 105 mmol/L (96-108); Estimated Glomerular Filt Rate > 60; Glucose Random 85 mg/dL (60-115); Potassium 3.8 mmol/L (3.3-5.1); Sodium 141 mmol/L (135-145)
== END 2020-09-13 17:36 | disposition home or self-care (01) ==
PROVIDERS: Nurse Practitioner Family; Emergency Provider Emergency Medicine
DX: N39.0 Urinary tract infection, site not specified (principal); R10.9 Unspecified abdominal pain; E03.9 Hypothyroidism, unspecified; Z79.899 Other long term (current) drug therapy; Z87.891 Personal history of nicotine dependence
CPT/HCPCS: 36415; 74176; 80048; 81001; 81003; 81025; 83605; 85025; 87040; 87086; 96365; 99284; J0696

== ENCOUNTER → 2020-10-14 12:15 | Outpatient (BNVA) | payer MEDICAID, SELFPAY | PROVIDERS: Visit Provider Internal Medicine Endocrinology, Diabetes & Metabolism | DX: E03.8 Other specified hypothyroidism (principal); E06.3 Autoimmune thyroiditis; E53.8 Deficiency of other specified B group vitamins; E83.51 Hypocalcemia; E55.9 Vitamin D deficiency, unspecified | CPT/HCPCS: 99212 ==

== ENCOUNTER 2020-10-25 12:03 | Outpatient (REF) | payer MEDICAID, SELFPAY ==
[2020-10-25 13:50] LABS: Alanine Aminotransferase 15 U/L (0-31); Albumin Level 4.3 g/dL (3.5-5.0); Alkaline Phosphatase 86 U/L (39-117); Anion Gap 11 (12-20); Aspartate Amino Transferase 18 U/L (5-31); Bilirubin Total 0.9 mg/dL (0.0-1.0); Blood Urea Nitrogen 11 mg/dL (9-16); Calcium 9.9 mg/dL (8.4-10.2); Carbon Dioxide 27 mmol/L (22-29); Chloride 106 mmol/L (96-108); Estimated Glomerular Filt Rate > 60; Glucose Random 93 mg/dL (60-115); Potassium 4.2 mmol/L (3.3-5.1); Sodium 140 mmol/L (135-145); Total Protein 7.7 g/dL (6.5-8.0)
[2020-10-25 14:05] LABS: Free T4 (Free Thyroxine) 1.17 ng/dL (0.71-1.85); Thyroid Stimulating Hormone 0.26 uIU/mL (0.32-4.0); Vitamin D 25-OH Total 20.1 ng/mL (>30)
[2020-10-25 14:56] LABS: Vitamin B12 162 pg/mL (200-900)
[2020-10-26 17:16] LABS: Calcium (PTHI) 9.7 mg/dL (8.6-10.2); PTHI 34 pg/mL (14-64)
== END 2020-10-25 12:04 | disposition home or self-care (01) ==
LOC: HO.LAB 12:03
PROVIDERS: PCP Internal Medicine; Visit Provider Internal Medicine Endocrinology, Diabetes & Metabolism
DX: E53.8 Deficiency of other specified B group vitamins (principal); E03.9 Hypothyroidism, unspecified; E55.9 Vitamin D deficiency, unspecified
CPT/HCPCS: 36415; 80053; 82306; 82607; 83970; 84439; 84443

== ENCOUNTER 2020-10-27 21:45 | Emergency (ER) | payer MEDICAID, SELFPAY ==
--- NOTE | ~2020-10-27 | XR_ITS ---
EXAMINATION: XR ABDOMEN KUB CLINICAL INDICATION: Right ureteric stent COMPARISON: CT abdomen pelvis 09/13/2020 TECHNIQUE: AP view of the abdomen. FINDINGS: The bowel gas pattern is normal with no evidence of ileus or obstruction. Surgical clips are present in the right pelvis. The bones are unremarkable. A double-J ureteral stent is present. There is a question of some encrustation of the distal pigtail as a abnormally increased density is seen around it. Phleboliths are noted in the pelvis. No definite stones are seen in the collecting systems. XR/XR KUB IMPRESSION: Right-sided double-J stent. Question of some encrustation of the distal pigtail.
[2020-10-27 21:51] VITALS: BP 121/69; PULSE 111; RESP 16; TEMP 37.2; O2SAT 98; BMI 35.2
--- NOTE | 2020-10-27 23:16 | ED.ABDPAIN ---
HPI - Abdominal Pain General Chief Complaint: Abdominal Pain Stated Complaint: side pain,knee pain Time Seen by Provider: 10/27/20 23:16 Source: patient Mode of arrival: ambulatory Limitations: language barrier History of Present Illness HPI narrative: Hepatitis C hypothyroidism iron deficiency anemia total hysterectomy on 08/20/2020 with removal of pelvic mass Lutommy my sarcoma status post right ureteral stent placement comes here for pain in the right side since morning similar to that when she was seen here on 09/13/20 patient seems very anxious complaining of pain all over no nausea no vomiting no diarrhea MD elicited complaint: abdominal pain Related Data Home Medications Medication Instructions Recorded Confirmed ibuprofen 800 mg tablet 800 mg PO Q8H PRN 10/14/20 10/14/20 Previous Rx's Medication Instructions Recorded acetaminophen [Tylenol 8 Hour] 650 mg PO Q8H PRN #60 tab 06/11/20 calcium carbonate 600 mg calcium 600 mg PO DAILY 30 Days #30 tab 08/06/20 (1,500 mg) tablet cefpodoxime 100 mg PO Q12H #14 tab 09/13/20 phenazopyridine [Pyridium] 200 mg PO TID PRN #10 tab 09/13/20 cholecalciferol (vitamin D3) 50 50 mcg PO DAILY 30 Days #30 cap 10/14/20 mcg (2,000 unit) capsule levothyroxine 200 mcg tablet 200 mcg PO DAILY 90 Days #90 tab 10/14/20 cyanocobalamin (vitamin B-12) 2,500 mcg SUBLINGUAL DAILY 30 Days 10/26/20 2,500 mcg sublingual tablet #30 tab tramadol 50 mg PO Q6H PRN #20 tab 10/28/20 Allergies Allergy/AdvReac Type Severity Reaction Status Date / Time No Known Allergies Allergy Verified 10/14/20 12:20 [No Known Allergies*] Review of Systems Review of Systems Yes all other systems are reviewed and are negative Physical Exam Vital Signs: Vital Signs: Last Vital Signs Temp 98.9 F 10/27/20 21:51 Pulse 111 H 10/27/20 21:51 Resp 16 10/27/20 21:51 BP 121/69 10/27/20 21:51 Pulse Ox 98 10/27/20 21:51 Body Mass Index 35.2 Appearance: Alert. Oriented X3. No acute distress. Very anxious Eyes: PERRLA, No Nystagmus ENT: Pharynx normal. Oral Mucosa moist Neck: Normal inspection. Neck supple. CVS: Normal heart rate and rhythm. Pulses normal. Respiratory: No respiratory distress. Equal air entry bilateral, no wheezing/rales/rhonchi Abdomen: Soft and nontender. Bowel sounds are present, no mass palpable, slight right CVA tenderness Skin: Skin warm and dry. Normal skin color. Normal skin turgor. Extremities: No lower extremity edema. No calf tenderness Neuro: Oriented X 3. No motor deficit. No sensory deficit.No cerebellar signs , cranial nerves II-XII intact MDM - Abdominal Pain MDM Narrative Medical decision making narrative: Patient has nonspecific complaints nontoxic look urine is negative for any infection x-ray showed stent in the right place with slight hyper dense area at the tip patient is supposed to see urologist to remove stent next week Lab Data Labs: Lab Results 10/27/20 Range/Units 22:10 Urine Color RAZIA Urine Appearance HAZY Urine pH 6.0 (5.0-8.0) Ur Specific [place] 1.025 (1.005-1.025) Urine Protein 1+ H (NEG-TRACE) MG/DL Urine Glucose (UA) NEG (NEG) MG/DL Urine Ketones NEG (NEG) MG/DL Urine Blood 2+ H (NEG) Urine Nitrite NEG (NEG) Ur Leukocyte Esterase TRACE H (NEG) Urine RBC 30-49 H (0) /HPF Urine WBC 1-4 (0-4) /HPF Ur Squamous Epith Cells 1+ /LPF Urine Bacteria 1+ /LPF Discharge Plan Discharge Clinical Impression: Abdominal pain Qualifiers: Abdominal location: generalized Qualified Code(s): R10.84 - Generalized abdominal pain Patient Disposition: Home, Self-Care Instructions: Abdominal Pain (ED) Additional Instructions: Follow-up with urologist as scheduled for stent removal next week. Prescriptions: New tramadol 50 mg tablet 50 mg PO Q6H PRN (Reason: pain) Qty: 20 RF: 0 No Action cyanocobalamin (vitamin B-12) 2,500 mcg tablet, sublingual 2,500 mcg sublingual DAILY 30 Days Qty: 30 RF: 7 acetaminophen [Tylenol 8 Hour] 650 mg tablet extended release 650 mg PO Q8H PRN (Reason: pain) Qty: 60 RF: 0 phenazopyridine [Pyridium] 200 mg tablet 200 mg PO TID PRN (Reason: pain) Qty: 10 RF: 0 cefpodoxime 100 mg tablet 100 mg PO Q12H Qty: 14 RF: 0 ibuprofen 800 mg tablet 800 mg PO Q8H PRNRF: 0 cholecalciferol (vitamin D3) 50 mcg (2,000 unit) capsule 50 mcg PO DAILY 30 Days Qty: 30 RF: 6 levothyroxine 200 mcg tablet 200 mcg PO DAILY 90 Days Qty: 90 RF: 1 calcium carbonate [Calcium 600] 600 mg calcium (1,500 mg) tablet 600 mg PO DAILY 30 Days Qty: 30 RF: 6 PMFSH Past Medical History Medical History Autoimmune disorder B12 deficiency Chronic hepatitis C HIV (human immunodeficiency virus infection) Hydronephrosis Hypocalcemia Hypothyroidism Iron deficiency anemia Leiomyosarcoma Vitamin D deficiency Surgical History H/O tubal ligation H/O: Family History Family History Sister Diabetes Father Alzheimer disease Mother No problems noted. Social History Social History Household Members: Children Housing: Apartment Alcohol intake: never Smoking Status: Former smoker Second Hand Smoke Exposure: No Advance Directives: No Advance Directives Information Provided: No Patient : No service: No Current occupational status: unemployed Sexual orientation: Straight/Heterosexual Gender identity: female
[2020-10-27 23:59] LABS: Glucose Urine UA NEG (NEG); Leukocyte Esterase Urine TRACE (NEG); Specific Gravity - Urine 1.025 (1.005-1.025); Urine Blood 2+ (NEG); Urine Ketones NEG (NEG); Urine Protein 1+ MG/DL (NEG-TRACE)
[2020-10-28 00:07] LABS: Appearance Urine HAZY; Color Urine AMBER; Nitrite Urine NEG (NEG)
[2020-10-28 01:02] VITALS: BP 142/78; PULSE 93; RESP 18; TEMP 36.8; O2SAT 98
[2020-10-28 01:09] LABS: Bacteria Urine 1+ /LPF; RBC Urine 30-49 /HPF (0); Squamous Epithelial Cell Urine 1+ /LPF
[2020-10-28] MEDS: traMADoL HCL 50 MG TABLET PO (01:19)
== END 2020-10-28 01:26 | disposition home or self-care (01) ==
PROVIDERS: Emergency Provider Internal Medicine
DX: R10.30 Lower abdominal pain, unspecified (principal); M25.561 Pain in right knee; Z87.891 Personal history of nicotine dependence; Z79.899 Other long term (current) drug therapy
CPT/HCPCS: 36415; 74018; 81001; 81003; 87086; 99284

== ENCOUNTER 2020-11-19 11:28 | Outpatient (REF) | payer MEDICAID, SELFPAY ==
--- NOTE | ~2020-11-19 | XR_ITS ---
EXAMINATION: XR CERVICAL SPINE CLINICAL INFORMATION: Neck pain radiating to the bilateral upper extremities. COMPARISON: Radiographs dated 05/07/2016. TECHNIQUE: Frontal, bilateral oblique, lateral and odontoid views are obtained. FINDINGS: Vertebral body heights and alignment are normal. The disc spaces are well-maintained. There is moderate anterior spondylosis at C5-6. No acute fracture or spondylolisthesis is seen. The posterior elements are intact. The bilateral neural foramina appear patent on the oblique views. There is no prevertebral soft tissue swelling. The dens and C7-T1 interface are normal. XR/XR cervical spine min 6V IMPRESSION: 1. No acute fracture or spondylolisthesis is seen. 2. The disc spaces are well-maintained. 3. There is moderate spondylosis at C5-6. 4. The bilateral neural foramina appear patent.
== END 2020-11-19 11:29 | disposition home or self-care (01) ==
LOC: HO.XRAY 11:28
PROVIDERS: Absent Provider Nurse Practitioner Family; PCP Nurse Practitioner Family; Visit Provider General Practice
DX: M54.2 Cervicalgia (principal)
CPT/HCPCS: 72052

== ENCOUNTER 2021-01-27 09:40 | Outpatient (REF) | payer MEDICAID, SELFPAY ==
--- NOTE | 2021-01-27 09:47 | EMG_ITS ---
Bilateral median and ulnar motor and sensory studies were performed. Bilateral radial sensory studies were performed and paraspinal muscles were tested with a needle. IMPRESSION: [id number] right and mild left median neuropathy across carpal tunnel. MD SILAS Tan/TINO / [id number]
[2021-01-27 11:48] LABS: Free T4 (Free Thyroxine) < 0.40 ng/dL (0.71-1.85); Vitamin D 25-OH Total 13.7 ng/mL (>30)
[2021-01-27 13:17] LABS: Vitamin B12 197 pg/mL (200-900)
[2021-01-27 14:17] LABS: Thyroid Stimulating Hormone > 100.00 uIU/mL (0.32-4.0)
== END 2021-01-27 09:41 | disposition home or self-care (01) ==
LOC: HO.NEURO 09:40
PROVIDERS: Absent Provider Internal Medicine Endocrinology, Diabetes & Metabolism; PCP Nurse Practitioner Family; Visit Provider Nurse Practitioner Family
DX: M79.641 Pain in right hand (principal); M79.642 Pain in left hand; E03.9 Hypothyroidism, unspecified; E55.9 Vitamin D deficiency, unspecified; E53.8 Deficiency of other specified B group vitamins
CPT/HCPCS: 36415; 82306; 82607; 84439; 84443; 95886; 95911

== ENCOUNTER → 2021-02-16 10:30 | Outpatient (BNVA) | payer MEDICAID, SELFPAY | PROVIDERS: Visit Provider Urology | DX: N13.30 Unspecified hydronephrosis (principal); B20 Human immunodeficiency virus [HIV] disease; B18.2 Chronic viral hepatitis C; E53.8 Deficiency of other specified B group vitamins; E55.9 Vitamin D deficiency, unspecified | CPT/HCPCS: 99212 ==

== ENCOUNTER → 2021-02-25 13:50 | Outpatient (BNVA) | payer MEDICAID, SELFPAY | PROVIDERS: Visit Provider Urology | DX: N13.30 Unspecified hydronephrosis (principal); N12 Tubulo-interstitial nephritis, not specified as acute or chronic | CPT/HCPCS: 52310; 99212 ==

== ENCOUNTER 2021-06-27 10:37 | Outpatient (REF) | payer MEDICAID, SELFPAY ==
--- NOTE | ~2021-06-27 | US_ITS ---
EXAMINATION: US RETROPERITONEAL LIMITED (RENAL ONLY) CLINICAL INFORMATION: Unspecified hydronephrosis. COMPARISON: X-ray abdomen KUB 10/28/2020. CT abdomen and pelvis 09/13/2020. Renal ultrasound 06/18/2020. Ultrasound kidneys and bladder 02/27/2020. TECHNIQUE: Real-time imaging of the kidneys. FINDINGS: RIGHT KIDNEY: 11.0 x 4.1 x 6.0 cm (SAG x AP x TRV). The kidney is normal in size, contour, and echogenicity. Renal cortical thickness is normal. There may be mild right hydronephrosis. This is decreased from previous ultrasound. No renal calculi or focal parenchymal lesions. LEFT KIDNEY: 11.1 x 4.7 x 4.2 cm (SAG x AP x TRV). The kidney is normal in size, contour, and echogenicity. Renal cortical thickness is normal. There is a 1.2 x 0.8 x 1.1 cm cyst in the lower pole with dependent focus of wall calcification versus milk of calcium cyst. No renal calculi or hydronephrosis. ADDITIONAL FINDINGS: Bilateral ureteral jets are seen. US/US renal BI IMPRESSION: Mild right hydronephrosis. This is decreased from previous ultrasound May 2020. Small approximately 1 cm left renal cyst with focus of wall calcification versus milk of calcium cyst
== END 2021-06-27 10:38 | disposition home or self-care (01) ==
LOC: HO.US 10:37
PROVIDERS: Visit Provider Urology
DX: N13.30 Unspecified hydronephrosis (principal)
CPT/HCPCS: 76775

== ENCOUNTER → 2021-07-21 13:56 | Outpatient (BNVA) | payer MEDICAID, SELFPAY | PROVIDERS: PCP Registered Nurse Community Health | DX: N20.0 Calculus of kidney (principal) | CPT/HCPCS: 99212 ==

== ENCOUNTER 2021-09-15 21:57 | Emergency (ER) | payer OTHER, MEDICAID, SELFPAY ==
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
[2021-09-15 22:15] VITALS: BP 117/74; BP 168/100; PULSE 105; PULSE 54; RESP 18; TEMP 36.9; O2SAT 97; O2SAT 98; BMI 40.2
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
[2021-09-16 00:21] VITALS: BP 129/82; PULSE 80; RESP 14; TEMP 36.8; O2SAT 99
[2021-09-16] MEDS: Diphth,Pertus(ACell),Tet Adult 0.5 ML SYRINGE IM (01:13)
[2021-09-16] MEDS: Ibuprofen 600 MG TABLET PO (01:14)
== END 2021-09-16 01:27 | disposition home or self-care (01) ==
PROVIDERS: Emergency Provider Emergency Medicine
DX: S06.0X0A Concussion without loss of consciousness, initial encounter (principal); S13.4XXA Sprain of ligaments of cervical spine, initial encounter; S29.012A Strain of muscle and tendon of back wall of thorax, initial encounter; S39.012A Strain of muscle, fascia and tendon of lower back, initial encounter; V43.52XA Car driver injured in collision with other type car in traffic accident, initial encounter; Y93.89 Activity, other specified; Y92.414 Local residential or business street as the place of occurrence of the external cause; Y99.9 Unspecified external cause status
CPT/HCPCS: 70450; 72125; 73070; 90471; 90715; 99284

== ENCOUNTER 2023-02-13 12:08 | Outpatient (REF) | payer MEDICAID, SELFPAY ==
[2023-02-14 13:16] LABS: Influenza A PCR NEGATIVE (Negative); Influenza B PCR NEGATIVE (Negative); Resp Syncy Virus RNA Qual PCR NEGATIVE (Negative); SARS COV2 PCR INHOUSE NEGATIVE (Negative)
== END 2023-02-13 12:09 | disposition home or self-care (01) ==
LOC: HO.HHCLNP 12:08
PROVIDERS: Visit Provider Internal Medicine
DX: J02.0 Streptococcal pharyngitis (principal)
CPT/HCPCS: 0241U

== ENCOUNTER 2023-06-28 19:07 | Emergency (ER) | payer MEDICAID, SELFPAY ==
--- NOTE | 2023-06-28 19:22 | MHC.EDTECH ---
Patient brought into triage area,EKG taken and signed by provider
[2023-06-28 19:37] VITALS: BP 144/71; PULSE 62; RESP 18; TEMP 36.2; O2SAT 98; BMI 33.2
--- NOTE | 2023-06-28 19:42 | ED.GENADULT ---
HPI - General Adult General Chief complaint: Upper Respiratory Symptoms Stated complaint: chest pain, lung pain, SOB all for 3 days Time Seen by Provider: 06/29/23 03:13 Source: patient Mode of arrival: ambulatory Limitations: no limitations History of Present Illness HPI narrative: Patient comes to the emergency room complaining of 3 days of cough, burning sensation in the lungs he from coughing patient denies shortness of breath. Related Data Home Medications Medication Instructions Recorded Confirmed ibuprofen 800 mg tablet 800 mg PO Q8H PRN 10/14/20 02/25/21 Previous Rx's Medication Instructions Recorded acetaminophen 650 mg 650 mg PO Q8H PRN pain #60 tabs 06/11/20 tablet,extended release (Tylenol 8 Hour) calcium carbonate 600 mg calcium 600 mg PO DAILY 30 days #30 tabs 08/06/20 (1,500 mg) tablet (Calcium) phenazopyridine 200 mg tablet 200 mg PO TID PRN pain 6 doses #10 09/13/20 (Pyridium) tabs cholecalciferol (vitamin D3) 50 50 mcg PO DAILY 30 days #30 caps 10/14/20 mcg (2,000 unit) capsule levothyroxine 200 mcg tablet 200 mcg PO DAILY 90 days #90 tabs 10/14/20 cyanocobalamin (vitamin B-12) 2,500 mcg sublingual DAILY 30 days 10/26/20 2,500 mcg sublingual tablet #30 tabs tramadol 50 mg tablet 50 mg PO Q6H PRN pain #20 tabs 10/28/20 cefpodoxime 100 mg tablet 100 mg PO Q12H #14 tabs 02/25/21 benzonatate 100 mg capsule 100 mg PO TID PRN cough #12 caps 06/29/23 ibuprofen 600 mg tablet 600 mg PO Q6H PRN fever or pain 06/29/23 #20 tabs Allergies Allergy/AdvReac Type Severity Reaction Status Date / Time No Known Allergies Allergy Verified 06/28/23 11:33 [No Known Allergies*] Review of Systems Review of Systems: Constitutional : No Weight loss, No Fever, No Chills, No Night Sweats, No Fatigue, No Malaise ENT/Mouth : No Hearing loss, No Ear Pain, No Nasal Congestion, No Sinus Pain, No Hoarseness, No sore throat, No Rhinorrhea, No Swallowing Difficulty Eyes: No Eye Pain, No Swelling, No Redness, No Foreign Body, No Discharge, No Vision Changes Cardiovascular : No Chest Pain, No SOB, No Dyspnea on Exertion, No Orthopnea, No Edema, No Palpitations Respiratory : Complaining of lung burning sensation bilaterally with coughing, Complaining of cough No Sputum, No Wheezing, No Smoke Exposure, No Dyspnea Gastrointestinal : No Nausea, No Vomiting, No Diarrhea, No Constipation, No abdominal Pain, No Hematochezia, No Melena Genitourinary : no irregular bleeding, No Dysuria, No Urinary Frequency, No Hematuria, No Urinary Incontinence, No Urgency, No Flank Pain, No Urinary Flow Changes, No Hesitancy Musculoskeletal : No joint pain, No Myalgias, No Joint Swelling Skin : No Skin Lesions, No rash Neuro : No Weakness, No Numbness, No Paresthesias, No Loss of Consciousness, No Dizziness, complaining of Headache Psych : No Anxiety/Panic, No Depression, No SI/HI/AH/VH, No Social Issues, Heme/Lymph: No Bruising, No Bleeding,No Lymphadenopathy Endocrine : No Polyuria, No Polydipsia, No Temperature Intolerance PMFSH Past Medical History Onset Date is defined in the Problem List Problems that require an onset date and time if occurred within 24 hrs of arrival to the ED Aortic Dissection and Rupture; Neurologic impairment; Cardiopulmonary Arrest; Endotracheal Intubation; Insertion or Replacement of Mechanical Circulatory Assist Device Medical History Renal calculi Vitamin D deficiency Leiomyosarcoma Hypocalcemia Hydronephrosis B12 deficiency Autoimmune disorder Hypothyroidism Iron deficiency anemia HIV (human immunodeficiency virus infection) Chronic hepatitis C Surgical History H/O tubal ligation H/O: Family History Family History Sister Diabetes Father Alzheimer disease Mother No problems noted. Social History Social History (System 06/28/23 @ 11:33 by Taya Dejesus) Household Members: Children Housing: Apartment Alcohol intake: current Alcohol intake frequency: a few times a month Comment: sleeping Smoked in Last 30 Days: No Second Hand Smoke Exposure: No Use of substances other than those prescribed or required for medical reasons: No Advance Directives: No Advance Directives Information Provided: No Patient : No service: No Current occupational status: unemployed Sexual orientation: Straight/Heterosexual Gender identity: Female Physical Exam ED Vital Signs: Vital Signs - 24 hr 06/28/23 19:37 06/29/23 00:05 06/29/23 02:06 Temperature 97.2 F 97.5 F 98.2 F Pulse Rate 62 75 66 Respiratory Rate 18 18 17 Blood Pressure 144/71 H 126/85 128/84 Pulse Oximetry 98 97 99 Oxygen Delivery Method Room Air Room Air Room Air 06/29/23 02:12 06/29/23 03:49 Temperature 97.5 F Pulse Rate 74 Respiratory Rate 17 Blood Pressure 127/93 H Pulse Oximetry 99 98 Oxygen Delivery Method Room Air Room Air BMI result Body Mass Index 33.2 Const Other: Appearance: Alert. Oriented X3. No acute distress. Eyes: Pupils equal, round and reactive to light. ENT: Pharynx normal. Nasal congestion present Neck: Normal inspection. Neck supple. No lymph nodes noted. No crepitus CVS: Normal heart rate and rhythm. Pulses normal. Normal S1 and S2 Respiratory: No respiratory distress. Breath sounds normal. No Wheezing. No rales Abdomen: Soft and nontender. No rigidity. No distention. Skin: Skin warm and dry. Normal skin color. Normal skin turgor. Extremities: No lower extremity edema. No Lacerations. No Rash Neuro: Oriented X 3. No motor deficit. No sensory deficit. Moving all extremities. No slurred speech. CN 2 through 12 grossly intact Psych: calm, cooperative, normal affect Course Course Course Narrative: RME: 47-year-old female presents to ED for coughing, body aches, chest pain only when she coughs, headache, and chills. SARs chest x-ray ordered. Triage nurse ordered EkG Medications Administered Discontinued Medications Generic Name Dose Route Start Last Admin Trade Name Freq PRN Reason Stop Dose Admin Benzonatate 200 mg 06/29/23 03:29 06/29/23 03:47 Benzonatate 100 Mg Capsule PO 06/29/23 03:30 200 mg ONCE ONE Administration Ketorolac Tromethamine 60 mg 06/29/23 03:29 06/29/23 03:48 Ketorolac Tromethamine 60 Mg/2 Ml Vial IM 06/29/23 03:30 60 mg ONCE ONE Administration Medical Decision Making Medical Decision Making MDM Narrative: -my interpretation of labs, patient tested negative for flu, RSV, strep and COVID. -my interpretation of chest x-ray, no infiltrates -patient likely having viral bronchitis -patient given 1 dose of IM Toradol for diffuse body aches and headache which got worse with coughing, also given p.o. Jerrell Trujillo Differential Diagnosis Differential Diagnoses: The differential diagnosis associated with the presentation includes (As above) Lab Data [facility] Lab Attestation statement: I reviewed the patient's lab results. Labs: Lab Results 06/28/23 Range/Units 20:09 Influenza Type A (PCR) NEGATIVE (Negative) Influenza Type B (PCR) NEGATIVE (Negative) RSV RNA Qual (PCR) NEGATIVE (Negative) SARS-CoV-2 RNA (RT-PCR) NEGATIVE (Negative) S. pyogenes GrpA RAQUEL Negative (Negative) Independent Interpretation I performed an independent interpretation of an: Plain X-Ray Radiology Impression Discussion of test interpretation with radiology: I have reviewed the radiologist's reading. Radiologist Impression: FINDINGS: No significant abnormality is noted involving the heart, lungs, mediastinum, bony thorax or soft tissues. XR/XR chest 1V IMPRESSION: Unremarkable examination. Discharge Plan Discharge Clinical Impression: Bronchitis, Headache Patient Disposition: Home, Self-Care Instructions: Acute Bronchitis (ED) Additional Instructions: Please follow-up with your primary care physician tomorrow. If you have any worsening or new symptoms, please return to the emergency room or call 911 Prescriptions: New benzonatate 100 mg capsule 100 mg PO TID PRN (Reason: cough) Qty: 12 0RF ibuprofen 600 mg tablet 600 mg PO Q6H PRN (Reason: fever or pain) Qty: 20 0RF No Action cyanocobalamin (vitamin B-12) 2,500 mcg tablet, sublingual 2,500 mcg sublingual DAILY 30 Days Qty: 30 7RF acetaminophen [Tylenol 8 Hour] 650 mg tablet extended release 650 mg PO Q8H PRN (Reason: pain) Qty: 60 0RF tramadol 50 mg tablet 50 mg PO Q6H PRN (Reason: pain) Qty: 20 0RF phenazopyridine [Pyridium] 200 mg tablet 200 mg PO TID PRN (Reason: pain) Qty: 10 0RF cefpodoxime 100 mg tablet 100 mg PO Q12H Qty: 14 0RF Rx Instructions: must administer with a meal/food ibuprofen 800 mg tablet 800 mg PO Q8H PRN cholecalciferol (vitamin D3) 50 mcg (2,000 unit) capsule 50 mcg PO DAILY 30 Days Qty: 30 6RF levothyroxine 200 mcg tablet 200 mcg PO DAILY 90 Days Qty: 90 1RF calcium carbonate [Calcium 600] 600 mg calcium (1,500 mg) tablet 600 mg PO DAILY 30 Days Qty: 30 6RF Interventions: ED Discharge Assessment Last Done: 06/29/23 03:53 Discharge Date/Time: 06/29/23 03:53
[2023-06-29 00:05] VITALS: BP 126/85; PULSE 75; RESP 18; TEMP 36.4; O2SAT 97
[2023-06-29 02:06] VITALS: BP 128/84; PULSE 66; RESP 17; TEMP 36.8; O2SAT 99
[2023-06-29 02:12] VITALS: O2SAT 99
--- NOTE | 2023-06-29 02:12 | PC.NURSE ---
physician relations representative at bedside. pt from home reporting 3 days of cough, congestion, chest pain with cough and white phlegm. pt denies being around any sick contacts. pt reports chest pain worsens with cough and she develops a pain in her right upper abdomen. pt lung sounds clear bilaterally. pt sating 98% on room air.
[2023-06-29 03:49] VITALS: BP 127/93; PULSE 74; RESP 17; TEMP 36.4; O2SAT 98
--- NOTE | 2023-06-29 03:50 | PC.NURSE ---
Took over care at 315am, medicated per aug, reviewed discharge instructions with pt. pt verbalized understanding, no sign of distress upon discharge.
== END 2023-06-29 03:53 | disposition home or self-care (01) ==
PROVIDERS: Emergency Provider Emergency Medicine
DX: J40 Bronchitis, not specified as acute or chronic (principal); R51.9 Headache, unspecified; Z20.822 Contact with and (suspected) exposure to COVID-19; Z20.828 Contact with and (suspected) exposure to other viral communicable diseases; R06.02 Shortness of breath; B20 Human immunodeficiency virus [HIV] disease; B18.2 Chronic viral hepatitis C; Z79.899 Other long term (current) drug therapy
CPT/HCPCS: 0241U; 71045; 87651; 93005; 96372; 99284; 99285; J1885

== ENCOUNTER → 2023-06-28 19:16 | Outpatient (BNV) | payer MEDICAID, SELFPAY | PROVIDERS: Emergency Provider Emergency Medicine; Visit Provider Internal Medicine Cardiovascular Disease | DX: R07.9 Chest pain, unspecified (principal) | CPT/HCPCS: 93010 ==

== ENCOUNTER 2023-11-08 13:52 | Outpatient (REF) | payer MEDICAID, SELFPAY ==
[2023-11-08 16:37] LABS: MANUAL DIFF FLAG NO
[2023-11-08 16:42] LABS: Basophils Percent Auto 0.4 % (0-2); Eosinophils Absolute Auto 0.1 X10*3/uL (0.0-0.4); Eosinophils Percent Auto 1.6 % (0-4); Hematocrit 35.8 % (37.0-47.0); Hemoglobin 11.9 g/dl (12.0-16.0); Imm Gran Abs Auto 0.02 X10*3/uL (0.00-0.03); Imm Gran Pct Auto 0.3 % (0.0-0.4); Lymphocytes Absolute Auto 2.3 X10*3/uL (1.2-4.9); Lymphocytes Percent Auto 32.8 % (20-40); Mean Corpuscular HGB Conc 33.2 g/dl (31.0-35.0); Mean Corpuscular Hemoglobin 30.9 pg (27.0-33.0); Mean Platelet Volume 10.6 fL (9.4-12.3); Monocytes Absolute Auto 0.4 X10*3/uL (0.1-1.2); Monocytes Percent Auto 5.5 % (2-11); Neutrophils Absolute Auto 4.1 x10*3/uL (2.0-8.3); Neutrophils Percent Auto 59.4 % (45-73); Platelet Count 252 X10*3/uL (160-400); Red Blood Count 3.85 X10*6/uL (4.20-5.50); Red Cell Distribution Width 14.2 % (11.0-16.0); White Blood Count 6.9 X10*3/uL (4.8-10.8)
[2023-11-08 17:02] LABS: Alanine Aminotransferase 16 U/L (0-31); Albumin Level 4.7 g/dL (3.5-5.0); Alkaline Phosphatase 89 U/L (39-117); Anion Gap 15 (12-20); Aspartate Amino Transferase 30 U/L (5-31); Bilirubin Total 0.6 mg/dL (0.0-1.0); Blood Urea Nitrogen 11 mg/dL (9-16); Calcium 9.8 mg/dL (8.4-10.2); Carbon Dioxide 23 mmol/L (22-29); Chloride 105 mmol/L (96-108); Cholesterol 222 mg/dL (<200); Estimated Glomerular Filt Rate > 60; Glucose Random 74 mg/dL (60-115); HDL Cholesterol 49 mg/dL (>40); LDL Cholesterol Calculated 146 mg/dL (<100); Potassium 3.8 mmol/L (3.3-5.1); Sodium 139 mmol/L (135-145); Total Protein 8.5 g/dL (6.5-8.0); Triglycerides 138 mg/dL (<150)
[2023-11-08 18:20] LABS: Reflex LDLD? No
[2023-11-09 08:44] LABS: Syphilis Screen Nonreactive (Nonreactive)
[2023-11-09 11:14] LABS: Absolute CD3 Count 1693 cells/uL (840-3060); Absolute CD4 Count 910 cells/uL (490-1740); Absolute CD8 Count 809 cells/uL (180-1170); Absolute Lymphocytes 2260 cells/uL (850-3900); CD4 CD8 Ratio 1.13 (0.86-5.00); Percent CD3 Cells 75 % (57-85); Percent CD4 Cells 40 % (30-61); Percent CD8 Cells 36 % (12-42)
[2023-11-10 14:44] LABS: HIV RNA PCR Qn Copies 414 copies/mL (NOT DETECTED); HIV RNA PCR Qn Log Copies 2.62 (NOT DETECTED)
[2023-11-12 14:58] LABS: HCV Log PCR <1.18 NOT DETECTED Log IU/mL (NOT DETECTED); HepC Viral Load <15 NOT DETECTED IU/mL (NOT DETECTED)
== END 2023-11-08 13:53 | disposition home or self-care (01) ==
LOC: HO.HHCL 13:52
PROVIDERS: Visit Provider Internal Medicine
DX: B20 Human immunodeficiency virus [HIV] disease (principal)
CPT/HCPCS: 36415; 80053; 80061; 85025; 86359; 86360; 86780; 87522; 87536

== ENCOUNTER 2024-01-01 16:25 | Outpatient (REF) | payer MEDICAID, SELFPAY ==
[2024-01-01 18:35] LABS: TSH reflex Free T4 48.94 uIU/mL (0.32-4.0)
== END 2024-01-01 16:26 | disposition home or self-care (01) ==
LOC: HO.HHCL 16:25
PROVIDERS: Visit Provider Family Medicine
DX: E03.9 Hypothyroidism, unspecified (principal)
CPT/HCPCS: 36415; 84439; 84443

== ENCOUNTER 2024-05-02 15:41 | Outpatient (REF) | payer MEDICAID, SELFPAY ==
[2024-05-02 18:12] LABS: MANUAL DIFF FLAG NO
[2024-05-02 18:19] LABS: Basophils Percent Auto 0.5 % (0-2); Eosinophils Absolute Auto 0.1 X10*3/uL (0.0-0.4); Eosinophils Percent Auto 1.7 % (0-4); Hematocrit 36.7 % (37.0-47.0); Hemoglobin 12.3 g/dl (12.0-16.0); Imm Gran Abs Auto 0.02 X10*3/uL (0.00-0.03); Imm Gran Pct Auto 0.3 % (0.0-0.4); Lymphocytes Percent Auto 30.7 % (20-40); Mean Corpuscular HGB Conc 33.5 g/dl (31.0-35.0); Mean Corpuscular Hemoglobin 30.5 pg (27.0-33.0); Mean Corpuscular Volume 91.1 fL (80.0-98.0); Mean Platelet Volume 10.1 fL (9.4-12.3); Monocytes Absolute Auto 0.3 X10*3/uL (0.1-1.2); Monocytes Percent Auto 5.1 % (2-11); Neutrophils Percent Auto 61.7 % (45-73); Platelet Count 251 X10*3/uL (160-400); Red Blood Count 4.03 X10*6/uL (4.20-5.50); Red Cell Distribution Width 14.5 % (11.0-16.0); White Blood Count 6.5 X10*3/uL (4.8-10.8)
[2024-05-02 18:48] LABS: Alanine Aminotransferase 23 U/L (0-31); Albumin Level 4.5 g/dL (3.5-5.0); Alkaline Phosphatase 99 U/L (39-117); Anion Gap 11 (12-20); Aspartate Amino Transferase 27 U/L (5-31); Bilirubin Total 0.4 mg/dL (0.0-1.0); Blood Urea Nitrogen 17 mg/dL (9-16); Calcium 9.4 mg/dL (8.4-10.2); Carbon Dioxide 26 mmol/L (22-29); Chloride 108 mmol/L (96-108); Estimated Glomerular Filt Rate > 60; Glucose Random 91 mg/dL (60-115); Potassium 3.9 mmol/L (3.3-5.1); Sodium 141 mmol/L (135-145); Total Protein 7.9 g/dL (6.5-8.0)
[2024-05-03 04:02] LABS: Hepatitis A Antibody IgG REACTIVE (Nonreactive); ~Hepatitis A Antibody IgG 6.01 S/CO (0.00-0.99)
[2024-05-03 05:17] LABS: CT PCR NOT DETECTED (Not Detect.); NG PCR NOT DETECTED (Not Detect.)
[2024-05-03 12:29] LABS: HBS Num1 382.02 mIU/mL (0-7.99); HBc Num1 0.11 S/CO (0.00-0.79); Hepatitis B Core Antibody Nonreactive (Nonreactive); Hepatitis B Surface Antigen Negative (Negative); ~Hepatitis B Surface Antibody REACTIVE (Nonreactive)
[2024-05-03 14:59] LABS: HIV RNA PCR Qn Copies NOT DETECTED copies/mL (NOT DETECTED); HIV RNA PCR Qn Log Copies NOT DETECTED (NOT DETECTED)
[2024-05-07 16:23] LABS: Absolute CD3 Count 1548 cells/uL (840-3060); Absolute CD4 Count 841 cells/uL (490-1740); Absolute CD8 Count 742 cells/uL (180-1170); Absolute Lymphocytes 2028 cells/uL (850-3900); CD4 CD8 Ratio 1.13 (0.86-5.00); Percent CD3 Cells 76 % (57-85); Percent CD4 Cells 41 % (30-61); Percent CD8 Cells 37 % (12-42)
== END 2024-05-02 15:42 | disposition home or self-care (01) ==
LOC: HO.HHCL 15:41
PROVIDERS: Visit Provider Internal Medicine
DX: B20 Human immunodeficiency virus [HIV] disease (principal)
CPT/HCPCS: 80053; 85025; 86359; 86360; 86704; 86706; 86708; 87340; 87491; 87536; 87591

== ENCOUNTER 2025-01-09 | Outpatient (REF) | payer MEDICAID, SELFPAY ==
--- OUTSIDE RECORDS SUMMARY | 2025-01-15 09:07 | XMS_ITS | Patient Health Record ---
Author Organization [facility] Address [address], [place] [id number] Care Team Providers Care Furnace Erector Name Role Phone ZZArchive - DO NOT USE, Benefits Referral Primar y Care Provider Unavailable Billy Ellington Unavailable [phone] Reason For Referral No Information Plan Of Treatment No Information Insurance Providers Payer Name Payer Address Payer Phone Subscriber Number Group Number Insured Name Patient Relationship to Insured Coverage Start Date Coverage End Date [place] [address] [place] [address] [id number] Isabelle Servin Self - patient is the insured 3
--- OUTSIDE RECORDS SUMMARY | 2025-01-15 09:07 | XMS_ITS | Encounter Summary ---
Author Organization [facility] Address [address] [place] [address] Phone Care Team Providers Care Chimney Construction Supervisor Name Role Phone Darius Renteria NP, Delmi Primary Care Provider Courtney Morales MD Unavailable [phone] Yuly Cooper MD, PhD Unavailable [phone] Jennifer Walker MD, ALBINO Unavailable [phone] Shilpa Hastings MD Unavailable [phone] Encounter Details Date Type Department Care Team (Late st Contact Info) Description 09/23/2020 Procedure Pass [facility] Radiology [address] [place] [address] Social History Tobacco Use Types Packs/Day Years Used Date Smoking Tobacco: Former Cigarettes Q uit: 2015 Smokeless Tobacco: Never Alcohol Use Standard Drinks/Week Comments Yes 0 (1 standard drink = 0.6 oz pur e alcohol) Comments Unknown Sex and Gender Information Value Date Recorded Sex Assigned at Not on file Legal Sex Female 10:26 AM EST Gender Identity Not on file Sexual Orientation Not on file documented as of this encounter Plan of Treatment Not on file documented as of this encounter Visit Diagnoses Not on filedocumented in this encounter Care Teams Chimney Construction Supervisor Relationship Specialty Start Date End Date Delmi Mccoy NP PCP - General 08/02/18 Courtney Angulo MD [address] [place] [address] [email or web address] Primary Oncologist Medical Oncology 09/15/20 Yuly Cooper MD, PhD [address] [place] [address] [email or web address] Surgeon Surgical Oncology 09/15/20 Jennifer Walker MD, ALBINO [address] [place] [address] [email or web address] Primary Oncologist Radiation Oncology 09/15/20 Shilpa Hastings MD [address] [place] [address] Obstetrics and Gynecology 09/23/20 documented as of this encounter Additional Source Comments The information contained in this document represents components of the legal health record. It is not the complete legal health record.[facility]
== END 2025-01-09 00:01 | disposition home or self-care (01) ==
LOC: HO.LNP
PROVIDERS: Visit Provider General Practice
DX: Z21 Asymptomatic human immunodeficiency virus [HIV] infection status (principal)
CPT/HCPCS: 88112

== ENCOUNTER 2025-02-16 14:09 | Outpatient (REF) | payer MEDICAID, SELFPAY ==
--- OUTSIDE RECORDS SUMMARY | 2025-02-16 15:34 | XMS_ITS | Patient Health Record ---
Author Organization [facility] Address [address] [place], [place] [id number] Care Team Providers Care Administrator Name Role Phone ZZArchive - DO NOT USE, Benefits Referral Primar y Care Provider Unavailable Billy Ellington Unavailable [phone] Reason For Referral No Information Plan Of Treatment No Information Insurance Providers Payer Name Payer Address Payer Phone Subscriber Number Group Number Insured Name Patient Relationship to Insured Coverage Start Date Coverage End Date [place] Medicaid Standard [address] [place] [address] [id number] Isabelle Servin Self - patient is the insured 3
--- OUTSIDE RECORDS SUMMARY | 2025-02-16 15:34 | XMS_ITS | Encounter Summary ---
Author Organization [facility] Address [address] [place] [address] Phone Care Team Providers Care Executive Assistant To President Name Role Phone Darius Renteria NP, Demli Primary Care Provider Courtney Morales MD Unavailable [phone] Yuly Cooper MD, PhD Unavailable [phone] Jennifer Walker MD, ALBINO Unavailable [phone] Shilpa Hastings MD Unavailable [phone] Encounter Details Date Type Department Care Team (Late st Contact Info) Description 09/23/2020 Procedure Pass [facility] Radiology [address] [place] [address] Social History Tobacco Use Types Packs/Day Years [...] on filedocumented in this encounter Care Teams Executive Assistant To President Relationship Specialty Start Date End Date Delmi Mccoy NP PCP - General 08/02/18 Courtney Angulo MD [address] [place] [address] [email or web address] Primary Oncologist Medical Oncology 09/15/20 Yuly Cooper MD, PhD [address] [place] [address] [email or web address] Surgeon Surgical Oncology 09/15/20 Jennifer Walker MD, ALBINO [address] [place] [address] [email or web address] Primary Oncologist Radiation Oncology 09/15/20 Shilpa Hastings MD [address] [place] [address] Obstetrics and Gynecology 09/23/20 documented as of this encounter Additional Source Comments The information contained in this document represents components of the legal health record. It is not the complete legal health record.[facility]
--- OUTSIDE RECORDS SUMMARY | 2025-02-16 15:34 | XMS_ITS | Clinical Summary ---
Author Organization [facility] Address [address] [facility] [address] [place] [address] Phone Care Team Providers Care Bulk Tank Driver Name Role Phone Darius Renteria NP, Delmi Primary Care Provider Courtney Morales MD Unavailable [phone] Yuly Cooper MD, PhD Unavailable [phone] Jennifer Walker MD, ALBINO Unavailable [phone] Shilpa Hastings MD Unavailable Allergies No known active allergies Medications cyanocobalamin, vitamin B-12, (VITAMIN B-12 ORAL) Take by mouth. Active ibuprofen (ADVIL,MOTRIN) 600 MG tablet Take 600 mg by mouth 2 (two) times a day. Active acetaminophen (TYLENOL) 325 mg tablet Take 650 mg by mouth daily as needed for mild pain. Active calcium carbonate (CALCIUM 600 ORAL) Take by mouth. 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 Not on dexter e 10/20/2022 Are you concerned about learning? Not on file 10/20/2022 No 10/20/2022 No 10/20/2022 Digital Access Answer Date Recorded No 11/21/2022 No 11/21/2022 No 11/21/2022 Reliable internet access at home? Not on file 11/21/2022 Device with a working camera? Not on file Comments Unknown Sex and Gender Information Value Date Recorded Sex Assigned at Not on file Legal Sex Female 10:26 AM EST Gender Identity Not on file Sexual Orientation Not on file Last Filed Vital Signs Vital Sign Reading Time Taken Comments Blood Pressure 115/77 11/24/2020 1:03 PM EDT Pulse 83 11/24/2020 1:03 PM EDT Temperature 36.7 C (98 F) 11/24/2020 1:03 PM EDT Respiratory Rate 18 11/24/2020 1:03 PM EDT Oxygen Saturation 100% 11/24/2020 1:03 PM EDT Inhaled Oxygen Concentration - - Weight 81.6 kg (179 lb 14.3 oz) 11/24/2020 1:03 PM EDT Height 156.8 cm (5' 1.73 ) 09/23/2020 9:00 AM ED T Body Mass Index 33.19 09/23/2020 9:00 AM EDT Plan of Treatment Health Maintenance Due Date Last Done Comments LIPID PANEL 1977 DEPRESSION SCREENING 1989 SMOKING Hx and SMOKELESS TOBACCO SCREENING 1990 HEPATITIS C SCREENING 1995 HIV ONE-TIME SCREENING (18-6 5 YEARS) 1995 PAP SMEAR 1998 MAMMOGRAM 2017 COLOGUARD 2022 COLONOSCOPY 2022 COLORECTAL CANCER SCREENING 2022 FIT TEST 2022 FOBT 2022 SIGMOIDOSCOPY 2022 VIRTUAL COLONOSCOPY 2022 COVID-19 VACCINE ( - 2023-2 5 season) 2024 Adult Td,Tdap Booster 04/17/2026 04/17/2016 , 09/17/2014 PNEUMOCOCCAL VACCINES (0-49 years) (4 of 4 - PCV20 or PCV21) 2027 08/22/2020, 04/16/2017, 07/21/2010 HEPATITIS A VACCINES Aged Out 08/29/2011, 10/25/2010 No longer eligible based on patient's age to complete this topic HIB VACCINES Aged Out No longer eligi ble based on patient's age to complete this topic MENINGOCOCCAL VACCINES (ACWY) Aged Out No longer eligible based on patient's age to complete this topic MENINGOCOCCAL VACCINES (B) Aged Out N o longer eligible based on patient's age to complete this topic Medical Devices Not on file Insurance C3 ACO C3 ACO C3 ACO C3 ACO C3 ACO C3 ACO Care Teams Bulk Tank Driver Relationship Specialty Start Date End Date Delmi Mccoy NP PCP - General 08/02/18 Courtney Angulo MD [address] [place] [address] [email or web address] Primary Oncologist Medical Oncology 09/15/20 Yuly Cooper MD, PhD [address] [place] [address] [email or web address] Surgeon Surgical Oncology 09/15/20 Jennifer Walker MD, ALBINO [address] [place] [phone] [email or web address] Primary Oncologist Radiation Oncology 09/15/20 [place] [address] [place] [address] Obstetrics and Gynecology 09/23/20 Additional Source Comments The information contained in this document represents components of the legal health record. It is not the complete legal health record.[facility]
--- OUTSIDE RECORDS SUMMARY | 2025-02-16 15:34 | XMS_ITS | Encounter Summary ---
Author Organization [facility] Address [address] [facility] [address] [place] [address] Phone Care Team Providers Care Rotating Equipment Engineer Name Role Phone Darius Renteria NP, Delmi Primary Care Provider Courtney Morales MD Unavailable [phone] Yuly Cooper MD, PhD Unavailable [phone] eJnnifer Walker MD, ALBINO Unavailable [phone] Shilpa Hastings MD Unavailable [phone] Encounter Details Date Type Department Care Team (Late st Contact Info) Description 09/23/2020 Procedure Pass [facility] Radiology [address] [place] [address] Social History Tobacco Use Types Packs/Day Years [...] on filedocumented in this encounter Care Teams Rotating Equipment Engineer Relationship Specialty Start Date End Date Delmi Mccoy NP PCP - General 08/02/18 Courtney Angulo MD [address] [place] [address] [email or web address] Primary Oncologist Medical Oncology 09/15/20 Yuly Cooper MD, PhD [address] [place] [address] [email or web address] Surgeon Surgical Oncology 09/15/20 Jennifer Walker MD, ALBINO [address] [place] [phone] [email or web address] Primary Oncologist Radiation Oncology 09/15/20 Shilpa Hastings MD [address] [place] [address] Obstetrics and Gynecology 09/23/20 documented as of this encounter Additional Source Comments The information contained in this document represents components of the legal health record. It is not the complete legal health record.[facility]
[2025-02-16 16:14] LABS: MANUAL DIFF FLAG NO
[2025-02-16 16:16] LABS: Hematocrit 36.7 % (37.0-47.0); Hemoglobin 11.9 g/dl (12.0-16.0); Imm Gran Abs Auto 0.04 X10*3/uL (0.00-0.03); Imm Gran Pct Auto 0.4 % (0.0-0.4); Lymphocytes Absolute Auto 1.9 X10*3/uL (1.2-4.9); Mean Corpuscular HGB Conc 32.4 g/dl (31.0-35.0); Mean Corpuscular Hemoglobin 30.8 pg (27.0-33.0); Mean Corpuscular Volume 95.1 fL (80.0-98.0); NRBC Abs Auto 0.000 X10*3/uL (0.0-0.012); NRBC Pct Auto 0.0 /100WBC (0.0-0.2); Platelet Count 292 X10*3/uL (160-400); Red Blood Count 3.86 X10*6/uL (4.20-5.50); White Blood Count 10.0 X10*3/uL (4.8-10.8)
[2025-02-16 16:30] LABS: Cholesterol 232 mg/dL (<200); HDL Cholesterol 48 mg/dL (>40); Triglycerides 173 mg/dL (<150)
[2025-02-16 16:44] LABS: Cannabinoid Screen Urine Not Detected (Not Detect)
[2025-02-16 16:45] LABS: Reflex LDLD? No
[2025-02-16 16:47] LABS: Alanine Aminotransferase 17 U/L (0-31); Albumin Level 4.6 g/dL (3.5-5.0); Alkaline Phosphatase 99 U/L (39-117); Anion Gap 12 (12-20); Aspartate Amino Transferase 26 U/L (5-31); Blood Urea Nitrogen 17 mg/dL (9-16); Calcium 9.0 mg/dL (8.4-10.2); Carbon Dioxide 25 mmol/L (22-29); Chloride 107 mmol/L (96-108); Estimated Glomerular Filt Rate 53; Potassium 3.7 mmol/L (3.3-5.1); Sodium 140 mmol/L (135-145); Total Protein 7.7 g/dL (6.5-8.0)
[2025-02-16 17:30] LABS: Free T4 (Free Thyroxine) < 0.42 ng/dL (0.71-1.85)
[2025-02-17 04:18] LABS: Syphilis Screen Nonreactive (Nonreactive)
[2025-02-18 14:33] LABS: HIV RNA PCR Qn Copies NOT DETECTED copies/mL (NOT DETECTED); HIV RNA PCR Qn Log Copies NOT DETECTED (NOT DETECTED)
[2025-02-19 12:04] LABS: TS Negative Control Passed; TS Panel A 0; TS Panel B 0; TS Positive Control Passed; TSpotTB Negative (Negative)
[2025-02-20 15:13] LABS: Absolute CD3 Count 1483 cells/uL (840-3060); Absolute CD8 Count 576 cells/uL (180-1170); Percent CD3 Cells 74 % (57-85); Percent CD8 Cells 29 % (12-42)
== END 2025-02-16 14:10 | disposition home or self-care (01) ==
LOC: HO.HHCL 14:09
PROVIDERS: Registered Nurse; PCP General Practice; Referring Provider Internal Medicine; Visit Provider General Practice
DX: E03.9 Hypothyroidism, unspecified (principal); Z21 Asymptomatic human immunodeficiency virus [HIV] infection status
CPT/HCPCS: 36415; 80053; 80061; 80307; 84439; 84443; 85025; 86359; 86360; 86481; 86780; 87536

== ENCOUNTER 2025-02-17 13:57 | Outpatient (REF) | payer MEDICAID, SELFPAY ==
--- OUTSIDE RECORDS SUMMARY | 2025-02-17 14:55 | XMS_ITS | Encounter Summary ---
Author Organization [facility] Address [address] [facility] [address] [place] [address] Phone Care Team Providers Care Youth Support Worker Name Role Phone Darius Renteria NP, Delmi Primary Care Provider Courtney Morales MD Unavailable [phone] Yuly Cooper MD, PhD Unavailable [phone] Jennifer Walker MD, ALBINO Unavailable [phone] Shilpa Hastings MD Unavailable [phone] Encounter Details Date Type Department Care Team (Late st Contact Info) Description 09/23/2020 Procedure Pass [facility] Radiology [address] [place] [address] Social History Tobacco Use Types Packs/Day Years [...] on filedocumented in this encounter Care Teams Youth Support Worker Relationship Specialty Start Date End Date Delmi Mccoy NP PCP - General 08/02/18 Courtney Angulo MD [address] [place] [address] [email or web address] Primary Oncologist Medical Oncology 09/15/20 Yuly Cooper MD, PhD [address] [place] [address] [email or web address] Surgeon Surgical Oncology 09/15/20 Jennifer Walker MD, ALBINO [address] [place] [id number] [email or web address] Primary Oncologist Radiation Oncology 09/15/20 Shilpa Hastings MD [address] [place] [address] Obstetrics and Gynecology 09/23/20 documented as of this encounter Additional Source Comments The information contained in this document represents components of the legal health record. It is not the complete legal health record.[facility]
--- OUTSIDE RECORDS SUMMARY | 2025-02-17 14:55 | XMS_ITS | Encounter Summary ---
Author Organization [facility] Address [address] [facility] [address] [place] [phone] Phone Care Team Providers Care Disassembler Product Name Role Phone Darius Renteria NP, Delmi Primary Care Provider Courtney Morales MD Unavailable [phone] Yuly Cooper MD, PhD Unavailable [phone] Jennifer Walker MD, ALBINO Unavailable [phone] Shilpa Hastings MD Unavailable [phone] Encounter Details Date Type Department Care Team (Late st Contact Info) Description 09/23/2020 Procedure Pass [facility] Radiology [address] [place] [address] Social History Tobacco Use Types Packs/Day Years [...] on filedocumented in this encounter Care Teams Disassembler Product Relationship Specialty Start Date End Date Delmi Mccoy NP PCP - General 08/02/18 Courtney Angulo MD [address] [place] [phone] [email or web address] Primary Oncologist Medical Oncology 09/15/20 Yuly Cooper MD, PhD [address] [place] [phone] [email or web address] Surgeon Surgical Oncology 09/15/20 Jennifer Walker MD, ALBINO [address] [place] [phone] [email or web address] Primary Oncologist Radiation Oncology 09/15/20 Shilpa Hastings MD [address] [place] [phone] Obstetrics and Gynecology 09/23/20 documented as of this encounter Additional Source Comments The information contained in this document represents components of the legal health record. It is not the complete legal health record.[facility]
--- OUTSIDE RECORDS SUMMARY | 2025-02-17 14:55 | XMS_ITS | Clinical Summary ---
Author Organization [facility] Address [address] [facility] [address] [place] [phone] Phone Care Team Providers Care Bpo Specialist Name Role Phone Darius Renteria NP, Delmi Primary Care Provider Courtney Morales MD Unavailable [phone] Yuly Cooper MD, PhD Unavailable [phone] Jennifer Walker MD, ALBINO Unavailable [phone] Shilpa Hastings MD Unavailable Allergies No known [...] ACO C3 ACO C3 ACO Care Teams Bpo Specialist Relationship Specialty Start Date End Date Delmi Mccoy NP PCP - General 08/02/18 Courtney Angulo MD [address] [place] [id number] [email or web address] Primary Oncologist Medical Oncology 09/15/20 Yuly Cooper MD, PhD [address] [place] [phone] [email or web address] Surgeon Surgical Oncology 09/15/20 Jennifer Walker MD, ALBINO [address] [place] [phone] [email or web address] Primary Oncologist Radiation Oncology 09/15/20 [place] [address] [place] [phone] Obstetrics and Gynecology 09/23/20 Additional Source Comments The information contained in this document represents components of the legal health record. It is not the complete legal health record.[facility]
--- OUTSIDE RECORDS SUMMARY | 2025-02-17 14:55 | XMS_ITS | Patient Health Record ---
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
== END 2025-02-17 13:58 | disposition home or self-care (01) ==
LOC: HO.HHCL 13:57
PROVIDERS: PCP General Practice; Visit Provider Internal Medicine
DX: E03.9 Hypothyroidism, unspecified (principal)
CPT/HCPCS: 36415; 84443